=== PATIENT | male | born 1970 | race African-American/Black ===

== ENCOUNTER 2018-07-19 08:49 | Emergency (ER) | payer OTHER, MEDICAID ==
[~2018-07-19] VITALS: Ht 188 cm; Wt 86.2 kg
[2018-07-19 09:00] VITALS: BP_SYST 214
[2018-07-19] MEDS ORDERED: DIPHENHYDRAMINE INJ 50 MG/ML VIAL IVP ONE (09:15)
[2018-07-19] MEDS ORDERED: PROCHLORPERAZINE EDISYLATE 10 MG/2 ML VIAL IVP ONE (09:15)
[2018-07-19 09:51] LABS: EOSINOPHILS # (AUTO) 0.5 K/uL (0.0-0.4); RED CELL DISTRIBUTION WIDTH 14.5 % (9.0-15.0)
[2018-07-19 10:00] LABS: CREATININE 1.89 mg/dL (0.55-1.30); POTASSIUM 3.8 mmol/L (3.5-5.1)
[2018-07-19 10:05] LABS: ALBUMIN 2.3 g/dL (3.4-4.8); TOTAL BILIRUBIN 0.4 mg/dL (0.0-1.0)
[2018-07-19 10:11] LABS: BASOPHILS % (AUTO) 0.1 % (0.0-2.0); HEMATOCRIT 31.4 % (36-54); HEMOGLOBIN 10.5 g/dL (14.0-18.0); RED BLOOD CELL COUNT(AUTO) 3.73 MIL/uL (4.2-6.2); WHITE BLOOD COUNT (AUTO) 17.7 K/uL (4.8-10.8)
[2018-07-19 10:12] LABS: LYMPHOCYTES # (AUTO) 1.8 K/uL (1.0-5.5); LYMPHOCYTES % (AUTO) 9.9 % (20.5-51.5); MEAN CORPUSCULAR HEMOGLOBIN 28 pg (27-31); MEAN CORPUSCULAR HGB CONC 34 % (32-36); MEAN CORPUSCULAR VOLUME 84 fL (79.0-98.0); MONOCYTES % (AUTO) 5.5 % (1.7-9.3); NEUTROPHILS # (AUTO) 14.4 K/uL (1.8-7.7); NEUTROPHILS % (AUTO) 81.5 % (40.0-70.0); PLATELET COUNT (AUTO) 479 K/uL (130-430)
[2018-07-19] MEDS ORDERED: fentaNYL CITRATE/PF 100 MCG/2 ML AMP IVP ONE (10:15)
[2018-07-19] MEDS ORDERED: HALOPERIDOL LACTATE 5 MG/ML VIAL IVP ONE (10:15)
[2018-07-19] MEDS ORDERED: NACL 0.9% 1,000 ML IV ONE (11:30)
[2018-07-19 11:47] VITALS: BP_SYST 122
== END 2018-07-19 11:47 | disposition home or self-care (01) ==
LOC: SED 08:49
DX: E11.43 Type 2 diabetes mellitus with diabetic autonomic (poly)neuropathy (principal); K31.84 Gastroparesis; F12.188 Cannabis abuse with other cannabis-induced disorder
CPT/HCPCS: 36415; 80053; 82962; 83690; 85025; 93005; 96361; 96374; 96375; 99284; J0780; J1200; J3010; J7030; 99283

== ENCOUNTER 2021-10-29 10:30 | Emergency (ER) | payer OTHER, MEDICAID ==
[~2021-10-29] VITALS: Ht 188 cm; Wt 85.7 kg
--- NOTE | 2021-10-29 10:45 | NUR ---
Patient to ER bed 8 for evaluation. Side rails up. Assumed care.
[2021-10-29 10:48] VITALS: BP_SYST 131
--- NOTE | 2021-10-29 10:48 | NUR ---
Pt came in by himself, with complaints of N/V x1 week in mornings that resolves in the afternoon. Denies Diarrhea, now has abd pain 02/15, c/o muscle cramps at night while trying to sleep. Hx of DM, renal failure, HTN.
--- NOTE | 2021-10-29 11:08 | NUR ---
ER at bedside examining patient.
[2021-10-29] MEDS ORDERED: ONDANSETRON 4 MG ODT TAB PO ONE (11:15)
[2021-10-29] MEDS ORDERED: ONDANSETRON HCL 4 MG/2 ML VIAL IVP ONE (11:30)
[2021-10-29 11:40] LABS: BILIRUBIN,URINE NEGATIVE (NEGATIVE); BLOOD, URINE 1+ (NEGATIVE); CLARITY/URINE CLEAR (CLEAR); COLOR,URINE YELLOW (YELLOW); GLUCOSE,URINE NEGATIVE (NEGATIVE); KETONES,URINE NEGATIVE (NEGATIVE); LEUKOCYTE ESTERASE ,URINE NEGATIVE (NEGATIVE); NITRITE, URINE NEGATIVE (NEGATIVE); PROTEIN URINE 2+ (NEGATIVE); UROBILINOGEN,URINE 0.2 (0.2-1.0)
[2021-10-29 11:50] LABS: BASOPHILS % (AUTO) 0.3 % (0.0-2.0); EOSINOPHILS # (AUTO) 0.1 K/uL (0.0-0.4); EOSINOPHILS % (AUTO) 0.6 % (0.0-4.0); HEMATOCRIT 33.7 % (36-54); HEMOGLOBIN 11.4 g/dL (14.0-18.0); LYMPHOCYTES # (AUTO) 0.9 K/uL (1.0-5.5); LYMPHOCYTES % (AUTO) 9.5 % (20.5-51.5); MEAN CORPUSCULAR HEMOGLOBIN 29 pg (27-31); MEAN CORPUSCULAR HGB CONC 34 % (32-36); MEAN CORPUSCULAR VOLUME 87 fL (79.0-98.0); MONOCYTES # (AUTO) 0.6 K/uL (0.0-1.0); MONOCYTES % (AUTO) 6.7 % (1.7-9.3); NEUTROPHILS % (AUTO) 82.9 % (40.0-70.0); PLATELET COUNT (AUTO) 241 K/uL (130-430); RED BLOOD CELL COUNT(AUTO) 3.89 MIL/uL (4.2-6.2); RED CELL DISTRIBUTION WIDTH 14.1 % (9.0-15.0); WHITE BLOOD COUNT (AUTO) 9.6 K/uL (4.8-10.8)
[2021-10-29 11:51] LABS: BACTERIA,URINE RARE /HPF (None Seen); MUCUS,URINE 1+ /LPF (None Seen); RBC,URINE 0-3 /HPF (0-3); WBC,URINE 0-3 /HPF (0-3)
[2021-10-29 12:22] LABS: CALCIUM 7.5 mg/dL (8.4-11.0); PHOSPHORUS 9.6 mg/dL (2.7-4.5); POTASSIUM 3.9 mmol/L (3.5-5.1); TOTAL BILIRUBIN 0.3 mg/dL (0.0-1.0)
[2021-10-29 12:24] LABS: CREATININE 12.97 mg/dL (0.55-1.30)
[2021-10-29] MEDS ORDERED: ONDA-8 TL (14:12)
[2021-10-29] MEDS ORDERED: DOCU-144 PO (14:12)
[2021-10-29] MEDS ORDERED: PSYL1PAC8 PO (14:12)
[2021-10-29 14:20] VITALS: BP_SYST 166
--- NOTE | 2021-10-29 14:20 | NUR ---
Patient given written and verbal discharge instructions and verbalizes understanding. ER Dr. Matute discussed with patient the results and treatment provided. Patient in stable condition. ID arm band removed. IV catheter removed intact and dressing applied, no active bleeding. Rx of Colace, Zofran, metamucil given. Patient educated on pain management and to follow up with PMD. Pain Scale 0. Opportunity for questions provided and answered. Medication side effect fact sheet provided.
== END 2021-10-29 14:20 | disposition home or self-care (01) ==
LOC: SED 10:30
DX: R11.2 Nausea with vomiting, unspecified (principal); K59.00 Constipation, unspecified; E11.22 Type 2 diabetes mellitus with diabetic chronic kidney disease; I12.0 Hypertensive chronic kidney disease with stage 5 chronic kidney disease or end stage renal disease; N18.6 End stage renal disease; Z99.2 Dependence on renal dialysis; Z79.899 Other long term (current) drug therapy
CPT/HCPCS: 36415; 71045; 74021; 80053; 81000; 83605; 83690; 83735; 83880; 84100; 84484; 85025; 87040; 93005; 96374; 99285; J2405

== ENCOUNTER 2022-06-10 18:01 | Inpatient (IN) | payer OTHER, MEDICAID ==
[~2022-06-10] VITALS: Ht 188 cm; Wt 76.7 kg
[~2022-06-10 18:01] MED LIST: DOCU-144 PO; ONDA-8 TL; PSYL1PAC8 PO
[2022-06-10 18:12] VITALS: BP_SYST 200
[2022-06-10] MEDS ORDERED: cefTRIAXone 1 GM IVPB PREMIX 50 ML IV ONE (18:15)
[2022-06-10 18:39] LABS: BILIRUBIN,URINE NEGATIVE (NEGATIVE); BLOOD, URINE 2+ (NEGATIVE); CLARITY/URINE CLEAR (CLEAR); COLOR,URINE YELLOW (YELLOW); GLUCOSE,URINE TRACE (NEGATIVE); KETONES,URINE NEGATIVE (NEGATIVE); LEUKOCYTE ESTERASE ,URINE NEGATIVE (NEGATIVE); NITRITE, URINE NEGATIVE (NEGATIVE); PROTEIN URINE 3+ (NEGATIVE); UROBILINOGEN,URINE 0.2 (0.2-1.0)
[2022-06-10 19:20] LABS: BACTERIA,URINE MODERATE /HPF (None Seen); WBC,URINE 20-50 /HPF (0-3)
[2022-06-10] MEDS ORDERED: MORPHINE 4 MG INJ. 4 MG/ML VIAL IVP ONE (19:30)
[2022-06-10] MEDS ORDERED: MORPHINE 4 MG INJ. 4 MG/ML VIAL ONE (19:38)
[2022-06-10] MEDS ORDERED: ONDANSETRON HCL 4 MG/2 ML VIAL IVP ONE (19:45)
[2022-06-10] MEDS ORDERED: DIPHENHYDRAMINE INJ 50 MG/ML VIAL IVP ONE (19:45)
[2022-06-10] MEDS ORDERED: DIPHENHYDRAMINE INJ 50 MG/ML VIAL ONE (19:46)
[2022-06-10] MEDS ORDERED: ONDANSETRON HCL 4 MG/2 ML VIAL ONE (19:49)
[2022-06-10 19:50] LABS: BASOPHILS # (AUTO) 0.2 K/uL (0.0-0.2); BASOPHILS % (AUTO) 2.8 % (0.0-2.0); EOSINOPHILS # (AUTO) 0.2 K/uL (0.0-0.4); EOSINOPHILS % (AUTO) 2.8 % (0.0-4.0); HEMOGLOBIN 7.8 g/dL (14.0-18.0); LYMPHOCYTES # (AUTO) 0.6 K/uL (1.0-5.5); MEAN CORPUSCULAR HEMOGLOBIN 30 pg (27-31); MEAN CORPUSCULAR HGB CONC 34 % (32-36); MEAN CORPUSCULAR VOLUME 87 fL (79.0-98.0); MONOCYTES # (AUTO) 0.7 K/uL (0.0-1.0); MONOCYTES % (AUTO) 8.2 % (1.7-9.3); NEUTROPHILS # (AUTO) 6.7 K/uL (1.8-7.7); NEUTROPHILS % (AUTO) 79.2 % (40.0-70.0); PLATELET COUNT (AUTO) 180 K/uL (130-430); RED BLOOD CELL COUNT(AUTO) 2.66 MIL/uL (4.2-6.2); WHITE BLOOD COUNT (AUTO) 8.5 K/uL (4.8-10.8)
[2022-06-10 20:16] LABS: ALANINE AMINOTRANSFERASE 27 U/L (12-78); ALBUMIN 2.9 g/dL (3.4-4.8); ANION GAP 13 (5-15); ASPARTATE AMINOTRANSFERASE 10 U/L (10-37); CHLORIDE 108 mmol/L (98-107); GLUCOSE 148 mg/dL (70-99); LIPASE 489 U/L (73-393); TOTAL BILIRUBIN 0.2 mg/dL (0.0-1.0)
[2022-06-10] MEDS ORDERED: INSU100V9 SQ (20:16)
[2022-06-10] MEDS ORDERED: FOLI-43 PO (20:16)
[2022-06-10] MEDS ORDERED: DOCU-144 PO (20:16)
[2022-06-10] MEDS ORDERED: NEPH PO (20:16)
[2022-06-10] MEDS ORDERED: LIP40 PO (20:16)
[2022-06-10] MEDS ORDERED: METO25TA3 PO (20:16)
[2022-06-10] MEDS ORDERED: CAT1PAT TD (20:16)
[2022-06-10] MEDS ORDERED: ERGO800011 PO (20:16)
[2022-06-10] MEDS ORDERED: GABA-533 PO (20:16)
[2022-06-10] MEDS ORDERED: SSNOVOLOG SUBCUT (20:16)
[2022-06-10] MEDS ORDERED: IRBE150T48 PO (20:16)
[2022-06-10] MEDS ORDERED: FURO-149 PO (20:16)
[2022-06-10 20:19] LABS: CALCIUM 6.1 mg/dL (8.4-11.0)
[2022-06-10 20:20] LABS: CREATININE 12.46 mg/dL (0.55-1.30); GFR AFRICAN AMERICAN 5 mL/min (>90); UREA NITROGEN, BLOOD 101 mg/dL (8-21)
[2022-06-10] MEDS ORDERED: INSULIN REGULAR, HUMAN 100 UNITS/ML, 3 ML VIAL (humuLIN R) SUBCUT PRN ×2 (21:15→23:30)
[2022-06-10 22:20] VITALS: BP_SYST 195
[2022-06-10] MEDS ORDERED: cloNIDine HCL 0.1 MG/24 HR PATCH.TDWK TD SCH (23:30)
[2022-06-10] MEDS ORDERED: FUROSEMIDE 40 MG TABLET PO SCH (23:30)
[2022-06-10] MEDS ORDERED: HYDROcodone/ACETAMIN 5-325 MG TAB (NORCO/ VICODIN) PO PRN (23:30)
[2022-06-10] MEDS ORDERED: ERGOCALCIFEROL 8000 UNITS/ML ORAL SOLUTION, 60 ML BOTTLE PO SCH (23:30)
[2022-06-10] MEDS ORDERED: NALOXONE HCL 0.4 MG/ML AMP (NARCAN) IVP PRN ×2 (23:30)
[2022-06-11 01:45] VITALS: BP_SYST 176
[2022-06-11] MEDS ORDERED: cefTRIAXone 1 GM IVPB PREMIX 50 ML IV ONE (02:24)
[2022-06-11] MEDS: cefTRIAXone 1 GM IVPB PREMIX 50 ML IV SCH ×2 (02:36→23:33)
[2022-06-11] MEDS ORDERED: NORMAL SALINE 5 ML DISP.SYRIN IVF SCH (06:00)
[2022-06-11] MEDS: LORazepam 2 MG/ML VIAL IVP PRN (06:17)
[2022-06-11] MEDS: NORMAL SALINE 5 ML DISP.SYRIN IVF SCH ×3 (06:23→21:51)
[2022-06-11 08:00] VITALS: BP_SYST 156
[2022-06-11 08:09] LABS: BASOPHILS # (AUTO) 0.1 K/uL (0.0-0.2); BASOPHILS % (AUTO) 0.5 % (0.0-2.0); EOSINOPHILS # (AUTO) 0.3 K/uL (0.0-0.4); EOSINOPHILS % (AUTO) 2.2 % (0.0-4.0); HEMATOCRIT 22.7 % (36-54); HEMOGLOBIN 7.7 g/dL (14.0-18.0); LYMPHOCYTES # (AUTO) 0.9 K/uL (1.0-5.5); LYMPHOCYTES % (AUTO) 6.9 % (20.5-51.5); MEAN CORPUSCULAR HEMOGLOBIN 29 pg (27-31); MEAN CORPUSCULAR HGB CONC 34 % (32-36); MEAN CORPUSCULAR VOLUME 86 fL (79.0-98.0); MONOCYTES # (AUTO) 0.8 K/uL (0.0-1.0); MONOCYTES % (AUTO) 6.2 % (1.7-9.3); NEUTROPHILS # (AUTO) 11.1 K/uL (1.8-7.7); NEUTROPHILS % (AUTO) 84.2 % (40.0-70.0); PLATELET COUNT (AUTO) 171 K/uL (130-430); RED BLOOD CELL COUNT(AUTO) 2.63 MIL/uL (4.2-6.2); RED CELL DISTRIBUTION WIDTH 14.4 % (9.0-15.0); WHITE BLOOD COUNT (AUTO) 13.2 K/uL (4.8-10.8)
[2022-06-11 08:27] LABS: PHOSPHORUS 7.9 mg/dL (2.7-4.5)
[2022-06-11] MEDS: NEPHROVITE, (FOLIC ACID/VITAMIN B COMP W-C 1 TAB) PO SCH (08:27)
[2022-06-11] MEDS: DOCUSATE SODIUM 100 MG CAPSULE PO SCH ×2 (08:27→20:24)
[2022-06-11] MEDS: FOLIC ACID 1 MG TABLET PO SCH (08:27)
[2022-06-11 08:28] LABS: CALCIUM 5.4 mg/dL (8.4-11.0); CREATININE 12.54 mg/dL (0.55-1.30)
[2022-06-11] MEDS: GABAPENTIN 300 MG CAPSULE PO SCH ×3 (08:37→20:24)
[2022-06-11] MEDS ORDERED: METOPROLOL SUCCINATE 25 MG TAB.SR.24H (TOPROL XL) PO SCH (09:00)
[2022-06-11] MEDS ORDERED: IRBESARTAN 150 MG TABLET (AVAPRO) PO SCH (09:00)
[2022-06-11] MEDS ORDERED: LOSARTAN POTASSIUM 50 MG TABLET (COZAAR) PO SCH ×2 (09:00→13:20)
[2022-06-11] MEDS ORDERED: GABAPENTIN 400 MG CAPSULE PO SCH (09:00)
[2022-06-11] MEDS: HYDROcodone/ACETAMIN 10-325 MG TAB PO PRN (10:04)
[2022-06-11 12:00] VITALS: BP_SYST 187
[2022-06-11] MEDS ORDERED: amLODIPine BESYLATE 10 MG TABLET PO ONE (12:00)
[2022-06-11] MEDS ORDERED: ERGO1250 PO (12:54)
[2022-06-11] MEDS ORDERED: METO25TA6 PO (12:54)
[2022-06-11] MEDS ORDERED: NEPHROVITE, (FOLIC ACID/VITAMIN B COMP W-C 1 TAB) PO SCH (13:15)
[2022-06-11] MEDS ORDERED: hydrALAZINE HCL 20 MG/ML VIAL IVP PRN (13:15)
[2022-06-11] MEDS ORDERED: LISINOPRIL 10 MG TABLET (PRINIVIL) PO SCH (13:15)
[2022-06-11] MEDS ORDERED: SEVELAMER CARBONATE 800 MG TABLET PO ONE (13:30)
[2022-06-11] MEDS: hydrALAZINE HCL 25 MG TABLET PO SCH ×2 (14:00→21:54)
[2022-06-11] MEDS: MORPHINE 2 MG/ML INJ. SYRINGE IVP PRN ×2 (14:59→22:01)
[2022-06-11] MEDS ORDERED: HEPARIN SODIUM,PORCINE 5,000 UNITS/ML VIAL SUBCUT ONE (15:45)
[2022-06-11] MEDS ORDERED: VANCOMYCIN HCL 1,000 MG in NS 250 ML IV ONE (19:00)
[2022-06-11 20:10] VITALS: BP_SYST 190
[2022-06-11] MEDS: ATORVASTATIN 20 MG TABLET PO SCH (20:24)
[2022-06-11] MEDS: EPOETIN ALFA 10,000 UNITS/ML VIAL SUBCUT SCH (20:25)
[2022-06-11] MEDS: SEVELAMER CARBONATE 800 MG TABLET PO SCH (20:25)
[2022-06-11] MEDS: METOPROLOL TARTRATE 25 MG TABLET PO SCH (20:26)
[2022-06-11] MEDS: ONDANSETRON HCL 4 MG/2 ML VIAL IVP PRN (20:37)
[2022-06-11] MEDS: INSULIN GLARGINE 100 UNITS/ML, 10 ML VIAL SQ SCH (20:43)
[2022-06-11 23:00] VITALS: BP_SYST 160
[2022-06-12] VITALS: BP_SYST 160
[2022-06-12] MEDS: ONDANSETRON HCL 4 MG/2 ML VIAL IVP PRN ×5 (01:29→21:48)
[2022-06-12] MEDS: NORMAL SALINE 5 ML DISP.SYRIN IVF SCH ×3 (06:39→21:50)
[2022-06-12] MEDS: hydrALAZINE HCL 25 MG TABLET PO SCH ×3 (06:43→17:22)
[2022-06-12 08:00] VITALS: BP_SYST 174
[2022-06-12 08:06] LABS: BASOPHILS # (AUTO) 0.1 K/uL (0.0-0.2); BASOPHILS % (AUTO) 0.8 % (0.0-2.0); EOSINOPHILS # (AUTO) 0.3 K/uL (0.0-0.4); EOSINOPHILS % (AUTO) 3.3 % (0.0-4.0); HEMATOCRIT 26.2 % (36-54); HEMOGLOBIN 9.1 g/dL (14.0-18.0); LYMPHOCYTES # (AUTO) 0.5 K/uL (1.0-5.5); LYMPHOCYTES % (AUTO) 5.4 % (20.5-51.5); MEAN CORPUSCULAR HEMOGLOBIN 30 pg (27-31); MEAN CORPUSCULAR HGB CONC 35 % (32-36); MEAN CORPUSCULAR VOLUME 87 fL (79.0-98.0); MONOCYTES # (AUTO) 0.6 K/uL (0.0-1.0); MONOCYTES % (AUTO) 5.6 % (1.7-9.3); NEUTROPHILS # (AUTO) 8.7 K/uL (1.8-7.7); NEUTROPHILS % (AUTO) 84.9 % (40.0-70.0); PLATELET COUNT (AUTO) 180 K/uL (130-430); RED BLOOD CELL COUNT(AUTO) 3.02 MIL/uL (4.2-6.2); RED CELL DISTRIBUTION WIDTH 13.8 % (9.0-15.0); WHITE BLOOD COUNT (AUTO) 10.2 K/uL (4.8-10.8)
[2022-06-12 08:07] LABS: C-REACTIVE PROTEIN QUANT 0.5 mg/dL (0-0.5); PHOSPHORUS 6.7 mg/dL (2.7-4.5); TOTAL BILIRUBIN 0.3 mg/dL (0.0-1.0); VANCOMYCIN,RANDOM 14.6 ug/mL
[2022-06-12 08:32] LABS: CALCIUM 6.5 mg/dL (8.4-11.0)
[2022-06-12 08:34] LABS: CREATININE 8.66 mg/dL (0.55-1.30)
[2022-06-12] MEDS: SEVELAMER CARBONATE 800 MG TABLET PO SCH ×3 (08:45→17:25)
[2022-06-12] MEDS: FOLIC ACID 1 MG TABLET PO SCH (08:45)
[2022-06-12] MEDS: amLODIPine BESYLATE 10 MG TABLET PO SCH (08:46)
[2022-06-12] MEDS: NEPHROVITE, (FOLIC ACID/VITAMIN B COMP W-C 1 TAB) PO SCH (08:49)
[2022-06-12] MEDS: LOSARTAN POTASSIUM 50 MG TABLET (COZAAR) PO SCH (08:50)
[2022-06-12] MEDS: FUROSEMIDE 40 MG TABLET PO SCH (08:50)
[2022-06-12] MEDS: DOCUSATE SODIUM 100 MG CAPSULE PO SCH ×2 (08:50→21:00)
[2022-06-12] MEDS: METOPROLOL TARTRATE 25 MG TABLET PO SCH ×2 (08:51→21:47)
[2022-06-12] MEDS ORDERED: ERGOCALCIFEROL PO SCH (09:00)
[2022-06-12] MEDS ORDERED: [UNRECOGNIZED DRUG - OTHER] PO SCH (09:00)
[2022-06-12] MEDS: GABAPENTIN 300 MG CAPSULE PO SCH ×5 (09:00→21:47)
[2022-06-12] MEDS ORDERED: CALCIUM GLUCONATE 1 GM/10 ML VIAL IVP ONE (09:15)
[2022-06-12] MEDS ORDERED: CALCIUM GLUCONATE 1 GM in NS 50 ML IV ONE (10:00)
[2022-06-12] MEDS ORDERED: CALCIUM GLUCONATE 1 GM/10 ML VIAL ONE (10:33)
[2022-06-12 11:52] LABS: ERYTHROCYTE SEDIMENTATION RATE 47 MM/HR (0-15)
[2022-06-12 12:00] VITALS: BP_SYST 159
[2022-06-12] MEDS ORDERED: VANCOMYCIN HCL 1,000 MG in NS 250 ML IV ONE (12:00)
[2022-06-12 16:00] VITALS: BP_SYST 146
[2022-06-12 19:20] VITALS: BP_SYST 159
[2022-06-12] MEDS: INSULIN GLARGINE 100 UNITS/ML, 10 ML VIAL SQ SCH (21:00)
[2022-06-12] MEDS: ATORVASTATIN 20 MG TABLET PO SCH (21:47)
[2022-06-13 00:42] VITALS: BP_SYST 162
[2022-06-13] MEDS: cefTRIAXone 1 GM IVPB PREMIX 50 ML IV SCH ×2 (00:44→23:27)
[2022-06-13] MEDS: hydrALAZINE HCL 25 MG TABLET PO SCH ×5 (00:45→23:49)
[2022-06-13] MEDS: NORMAL SALINE 5 ML DISP.SYRIN IVF SCH ×3 (06:05→21:58)
[2022-06-13 08:16] LABS: BASOPHILS # (AUTO) 0.1 K/uL (0.0-0.2); BASOPHILS % (AUTO) 1.1 % (0.0-2.0); EOSINOPHILS # (AUTO) 0.3 K/uL (0.0-0.4); EOSINOPHILS % (AUTO) 2.8 % (0.0-4.0); HEMATOCRIT 29.8 % (36-54); HEMOGLOBIN 10.1 g/dL (14.0-18.0); LYMPHOCYTES # (AUTO) 1.1 K/uL (1.0-5.5); LYMPHOCYTES % (AUTO) 11.1 % (20.5-51.5); MEAN CORPUSCULAR HEMOGLOBIN 30 pg (27-31); MEAN CORPUSCULAR HGB CONC 34 % (32-36); MEAN CORPUSCULAR VOLUME 87 fL (79.0-98.0); MONOCYTES # (AUTO) 0.9 K/uL (0.0-1.0); MONOCYTES % (AUTO) 8.7 % (1.7-9.3); NEUTROPHILS # (AUTO) 7.9 K/uL (1.8-7.7); NEUTROPHILS % (AUTO) 76.3 % (40.0-70.0); PLATELET COUNT (AUTO) 225 K/uL (130-430); RED BLOOD CELL COUNT(AUTO) 3.43 MIL/uL (4.2-6.2); RED CELL DISTRIBUTION WIDTH 13.9 % (9.0-15.0); WHITE BLOOD COUNT (AUTO) 10.4 K/uL (4.8-10.8)
[2022-06-13 08:28] LABS: ANION GAP 13 (5-15); CHLORIDE 102 mmol/L (98-107); GLUCOSE 86 mg/dL (70-99); UREA NITROGEN, BLOOD 67 mg/dL (8-21)
[2022-06-13 08:58] LABS: PHOSPHORUS 7.9 mg/dL (2.7-4.5)
[2022-06-13 09:07] LABS: C-REACTIVE PROTEIN QUANT < 0.2 mg/dL (0-0.5); GFR AFRICAN AMERICAN 7 mL/min (>90)
[2022-06-13 09:08] LABS: CALCIUM 6.7 mg/dL (8.4-11.0); CREATININE 10.33 mg/dL (0.55-1.30)
[2022-06-13 09:27] LABS: VANCOMYCIN,RANDOM 22.8 ug/mL
[2022-06-13] MEDS: LOSARTAN POTASSIUM 50 MG TABLET (COZAAR) PO SCH (10:52)
[2022-06-13] MEDS: SEVELAMER CARBONATE 800 MG TABLET PO SCH ×3 (10:52→17:20)
[2022-06-13] MEDS: DOCUSATE SODIUM 100 MG CAPSULE PO SCH ×2 (10:52→21:00)
[2022-06-13] MEDS: FUROSEMIDE 40 MG TABLET PO SCH (10:53)
[2022-06-13] MEDS: FOLIC ACID 1 MG TABLET PO SCH (10:53)
[2022-06-13] MEDS: METOPROLOL TARTRATE 25 MG TABLET PO SCH ×2 (10:54→21:55)
[2022-06-13] MEDS: GABAPENTIN 300 MG CAPSULE PO SCH ×3 (10:54→21:55)
[2022-06-13] MEDS: amLODIPine BESYLATE 10 MG TABLET PO SCH (10:54)
[2022-06-13] MEDS: NEPHROVITE, (FOLIC ACID/VITAMIN B COMP W-C 1 TAB) PO SCH (10:54)
[2022-06-13] MEDS: BALSAM PERU/CASTOR OIL 56.7 GM OINT...G. TP SCH (10:55)
[2022-06-13] MEDS: PANTOPRAZOLE SODIUM 40 MG TAB PO SCH (10:56)
[2022-06-13 12:00] VITALS: BP_SYST 159
[2022-06-13 13:09] LABS: ERYTHROCYTE SEDIMENTATION RATE 41 MM/HR (0-15)
[2022-06-13] MEDS ORDERED: CALCIUM GLUCONATE 1 GM in NS 100 ML IV ONE (13:30)
[2022-06-13] MEDS ORDERED: HEPARIN SODIUM,PORCINE 5,000 UNITS/ML VIAL ONE (15:16)
[2022-06-13] MEDS ORDERED: SEVELAMER CARBONATE 800 MG TABLET ONE (15:17)
[2022-06-13] MEDS ORDERED: GABAPENTIN 300 MG CAPSULE ONE (15:17)
[2022-06-13] MEDS: LORazepam 2 MG/ML VIAL IVP PRN (15:21)
[2022-06-13 16:00] VITALS: BP_SYST 139
[2022-06-13 20:30] VITALS: BP_SYST 133
[2022-06-13] MEDS: INSULIN GLARGINE 100 UNITS/ML, 10 ML VIAL SQ SCH (21:00)
[2022-06-13] MEDS: ATORVASTATIN 20 MG TABLET PO SCH (21:55)
[2022-06-14] MEDS: MORPHINE 2 MG/ML INJ. SYRINGE IVP PRN ×2 (00:34→14:21)
[2022-06-14 02:00] VITALS: BP_SYST 198
[2022-06-14 04:26] VITALS: BP_SYST 147
[2022-06-14] MEDS: NORMAL SALINE 5 ML DISP.SYRIN IVF SCH ×3 (06:34→22:01)
[2022-06-14] MEDS: hydrALAZINE HCL 25 MG TABLET PO SCH ×3 (06:37→17:49)
[2022-06-14 07:38] LABS: BASOPHILS # (AUTO) 0.1 K/uL (0.0-0.2); BASOPHILS % (AUTO) 0.9 % (0.0-2.0); EOSINOPHILS # (AUTO) 0.4 K/uL (0.0-0.4); HEMATOCRIT 29.5 % (36-54); HEMOGLOBIN 10.2 g/dL (14.0-18.0); LYMPHOCYTES # (AUTO) 1.4 K/uL (1.0-5.5); LYMPHOCYTES % (AUTO) 14.2 % (20.5-51.5); MEAN CORPUSCULAR HEMOGLOBIN 30 pg (27-31); MEAN CORPUSCULAR HGB CONC 35 % (32-36); MEAN CORPUSCULAR VOLUME 87 fL (79.0-98.0); MONOCYTES % (AUTO) 10.1 % (1.7-9.3); NEUTROPHILS # (AUTO) 6.9 K/uL (1.8-7.7); NEUTROPHILS % (AUTO) 70.8 % (40.0-70.0); PLATELET COUNT (AUTO) 229 K/uL (130-430); WHITE BLOOD COUNT (AUTO) 9.8 K/uL (4.8-10.8)
[2022-06-14 08:12] LABS: ANION GAP 9 (5-15); CALCIUM 7.9 mg/dL (8.4-11.0); CHLORIDE 101 mmol/L (98-107); GLUCOSE 89 mg/dL (70-99); PHOSPHORUS 5.4 mg/dL (2.7-4.5); UREA NITROGEN, BLOOD 38 mg/dL (8-21)
[2022-06-14 08:16] LABS: CREATININE 7.86 mg/dL (0.55-1.30); GFR AFRICAN AMERICAN 9 mL/min (>90)
[2022-06-14 08:46] LABS: C-REACTIVE PROTEIN QUANT < 0.2 mg/dL (0-0.5)
[2022-06-14 09:24] LABS: VANCOMYCIN,RANDOM 16.8 ug/mL
[2022-06-14] MEDS: SEVELAMER CARBONATE 800 MG TABLET PO SCH ×3 (10:13→17:48)
[2022-06-14] MEDS: DOCUSATE SODIUM 100 MG CAPSULE PO SCH ×2 (10:13→21:00)
[2022-06-14] MEDS: LOSARTAN POTASSIUM 50 MG TABLET (COZAAR) PO SCH (10:13)
[2022-06-14] MEDS: METOPROLOL TARTRATE 25 MG TABLET PO SCH ×2 (10:14→21:56)
[2022-06-14] MEDS: FUROSEMIDE 40 MG TABLET PO SCH (10:15)
[2022-06-14] MEDS: PANTOPRAZOLE SODIUM 40 MG TAB PO SCH (10:15)
[2022-06-14] MEDS: GABAPENTIN 300 MG CAPSULE PO SCH ×3 (10:15→21:56)
[2022-06-14] MEDS: NEPHROVITE, (FOLIC ACID/VITAMIN B COMP W-C 1 TAB) PO SCH (10:16)
[2022-06-14] MEDS: amLODIPine BESYLATE 10 MG TABLET PO SCH (10:16)
[2022-06-14] MEDS: FOLIC ACID 1 MG TABLET PO SCH (10:21)
[2022-06-14] MEDS: BALSAM PERU/CASTOR OIL 56.7 GM OINT...G. TP SCH (10:22)
[2022-06-14 12:00] VITALS: BP_SYST 151
[2022-06-14] MEDS ORDERED: VANCOMYCIN HCL 1,000 MG in NS 250 ML IV ONE (12:00)
[2022-06-14 14:05] LABS: ERYTHROCYTE SEDIMENTATION RATE 34 MM/HR (0-15)
[2022-06-14 16:00] VITALS: BP_SYST 145
[2022-06-14] MEDS ORDERED: cloNIDine HCL 0.1 MG TABLET PO ONE (16:00)
[2022-06-14] MEDS: EPOETIN ALFA 10,000 UNITS/ML VIAL SUBCUT SCH (17:51)
[2022-06-14 20:15] VITALS: BP_SYST 165
[2022-06-14] MEDS: INSULIN GLARGINE 100 UNITS/ML, 10 ML VIAL SQ SCH (21:00)
[2022-06-14] MEDS: cloNIDine HCL 0.1 MG TABLET PO SCH (21:55)
[2022-06-14] MEDS: ATORVASTATIN 20 MG TABLET PO SCH (21:55)
[2022-06-15 01:25] VITALS: BP_SYST 115
[2022-06-15] MEDS: cefTRIAXone 1 GM IVPB PREMIX 50 ML IV SCH ×2 (01:27→23:08)
[2022-06-15] MEDS: hydrALAZINE HCL 25 MG TABLET PO SCH ×5 (06:00→23:18)
[2022-06-15] MEDS: NORMAL SALINE 5 ML DISP.SYRIN IVF SCH ×3 (06:50→23:08)
[2022-06-15 08:21] LABS: BASOPHILS # (AUTO) 0.1 K/uL (0.0-0.2); BASOPHILS % (AUTO) 0.9 % (0.0-2.0); EOSINOPHILS # (AUTO) 0.6 K/uL (0.0-0.4); HEMATOCRIT 27.7 % (36-54); HEMOGLOBIN 9.6 g/dL (14.0-18.0); LYMPHOCYTES # (AUTO) 1.4 K/uL (1.0-5.5); LYMPHOCYTES % (AUTO) 17.1 % (20.5-51.5); MEAN CORPUSCULAR HEMOGLOBIN 31 pg (27-31); MEAN CORPUSCULAR HGB CONC 35 % (32-36); MEAN CORPUSCULAR VOLUME 88 fL (79.0-98.0); MONOCYTES # (AUTO) 1.1 K/uL (0.0-1.0); MONOCYTES % (AUTO) 13.4 % (1.7-9.3); NEUTROPHILS # (AUTO) 5.1 K/uL (1.8-7.7); NEUTROPHILS % (AUTO) 61.6 % (40.0-70.0); PLATELET COUNT (AUTO) 227 K/uL (130-430); RED BLOOD CELL COUNT(AUTO) 3.15 MIL/uL (4.2-6.2); RED CELL DISTRIBUTION WIDTH 13.9 % (9.0-15.0); WHITE BLOOD COUNT (AUTO) 8.3 K/uL (4.8-10.8)
[2022-06-15 08:53] LABS: ALANINE AMINOTRANSFERASE 16 U/L (12-78); ALBUMIN 2.8 g/dL (3.4-4.8); ANION GAP 7 (5-15); ASPARTATE AMINOTRANSFERASE 13 U/L (10-37); CALCIUM 7.4 mg/dL (8.4-11.0); CHLORIDE 101 mmol/L (98-107); GLUCOSE 97 mg/dL (70-99); PHOSPHORUS 5.5 mg/dL (2.7-4.5); TOTAL BILIRUBIN 0.1 mg/dL (0.0-1.0); UREA NITROGEN, BLOOD 48 mg/dL (8-21)
[2022-06-15 09:23] LABS: ERYTHROCYTE SEDIMENTATION RATE 23 MM/HR (0-15)
[2022-06-15 09:27] VITALS: BP_SYST 145
[2022-06-15] MEDS: GABAPENTIN 300 MG CAPSULE PO SCH ×3 (09:31→20:58)
[2022-06-15] MEDS: LOSARTAN POTASSIUM 50 MG TABLET (COZAAR) PO SCH (09:31)
[2022-06-15] MEDS: SEVELAMER CARBONATE 800 MG TABLET PO SCH ×3 (09:32→17:26)
[2022-06-15] MEDS: METOPROLOL TARTRATE 25 MG TABLET PO SCH ×2 (09:32→21:05)
[2022-06-15] MEDS: NEPHROVITE, (FOLIC ACID/VITAMIN B COMP W-C 1 TAB) PO SCH (09:32)
[2022-06-15] MEDS: amLODIPine BESYLATE 10 MG TABLET PO SCH (09:33)
[2022-06-15] MEDS: PANTOPRAZOLE SODIUM 40 MG TAB PO SCH (09:33)
[2022-06-15] MEDS: DOCUSATE SODIUM 100 MG CAPSULE PO SCH ×2 (09:33→20:58)
[2022-06-15] MEDS: FOLIC ACID 1 MG TABLET PO SCH (09:34)
[2022-06-15] MEDS: cloNIDine HCL 0.1 MG TABLET PO SCH ×2 (09:34→21:04)
[2022-06-15] MEDS: FUROSEMIDE 40 MG TABLET PO SCH (09:34)
[2022-06-15] MEDS: BALSAM PERU/CASTOR OIL 56.7 GM OINT...G. TP SCH (09:34)
[2022-06-15 10:20] LABS: GFR AFRICAN AMERICAN 7 mL/min (>90)
[2022-06-15 10:21] LABS: CREATININE 10.08 mg/dL (0.55-1.30)
[2022-06-15 10:23] LABS: C-REACTIVE PROTEIN QUANT < 0.2 mg/dL (0-0.5)
[2022-06-15] MEDS: LORazepam 2 MG/ML VIAL IVP PRN (10:47)
[2022-06-15 12:43] VITALS: BP_SYST 163
[2022-06-15 17:08] VITALS: BP_SYST 122
[2022-06-15 20:00] VITALS: BP_SYST 111
[2022-06-15] MEDS: ACETAMINOPHEN 325 MG TABLET PO PRN (20:58)
[2022-06-15] MEDS: ATORVASTATIN 20 MG TABLET PO SCH (20:58)
[2022-06-15] MEDS: INSULIN GLARGINE 100 UNITS/ML, 10 ML VIAL SQ SCH (21:00)
[2022-06-15] MEDS: MORPHINE 2 MG/ML INJ. SYRINGE IVP PRN (23:07)
[2022-06-16] MEDS: hydrALAZINE HCL 25 MG TABLET PO SCH ×3 (06:00→17:32)
[2022-06-16] MEDS: NORMAL SALINE 5 ML DISP.SYRIN IVF SCH ×3 (06:05→21:53)
[2022-06-16 07:19] LABS: BASOPHILS # (AUTO) 0.1 K/uL (0.0-0.2); BASOPHILS % (AUTO) 1.1 % (0.0-2.0); EOSINOPHILS # (AUTO) 0.5 K/uL (0.0-0.4); EOSINOPHILS % (AUTO) 5.4 % (0.0-4.0); HEMATOCRIT 27.9 % (36-54); HEMOGLOBIN 9.5 g/dL (14.0-18.0); LYMPHOCYTES # (AUTO) 1.5 K/uL (1.0-5.5); LYMPHOCYTES % (AUTO) 16.1 % (20.5-51.5); MEAN CORPUSCULAR HEMOGLOBIN 30 pg (27-31); MEAN CORPUSCULAR HGB CONC 34 % (32-36); MEAN CORPUSCULAR VOLUME 88 fL (79.0-98.0); MONOCYTES # (AUTO) 1.2 K/uL (0.0-1.0); MONOCYTES % (AUTO) 12.8 % (1.7-9.3); NEUTROPHILS % (AUTO) 64.6 % (40.0-70.0); PLATELET COUNT (AUTO) 260 K/uL (130-430); RED BLOOD CELL COUNT(AUTO) 3.17 MIL/uL (4.2-6.2); RED CELL DISTRIBUTION WIDTH 14.3 % (9.0-15.0); WHITE BLOOD COUNT (AUTO) 9.2 K/uL (4.8-10.8)
[2022-06-16 07:39] LABS: ANION GAP 8 (5-15); CALCIUM 7.8 mg/dL (8.4-11.0); CHLORIDE 102 mmol/L (98-107); GLUCOSE 105 mg/dL (70-99); PHOSPHORUS 4.7 mg/dL (2.7-4.5); UREA NITROGEN, BLOOD 35 mg/dL (8-21)
[2022-06-16 07:49] LABS: GFR AFRICAN AMERICAN 9 mL/min (>90)
[2022-06-16 07:50] LABS: C-REACTIVE PROTEIN QUANT < 0.2 mg/dL (0-0.5)
[2022-06-16] MEDS: NEPHROVITE, (FOLIC ACID/VITAMIN B COMP W-C 1 TAB) PO SCH (08:45)
[2022-06-16] MEDS: SEVELAMER CARBONATE 800 MG TABLET PO SCH ×3 (08:45→17:22)
[2022-06-16] MEDS: FOLIC ACID 1 MG TABLET PO SCH (08:45)
[2022-06-16] MEDS: METOPROLOL TARTRATE 25 MG TABLET PO SCH ×2 (08:46→21:00)
[2022-06-16] MEDS: GABAPENTIN 300 MG CAPSULE PO SCH ×3 (08:46→21:06)
[2022-06-16] MEDS: FUROSEMIDE 40 MG TABLET PO SCH (08:47)
[2022-06-16] MEDS: LOSARTAN POTASSIUM 50 MG TABLET (COZAAR) PO SCH (08:48)
[2022-06-16] MEDS: PANTOPRAZOLE SODIUM 40 MG TAB PO SCH (08:48)
[2022-06-16] MEDS: amLODIPine BESYLATE 10 MG TABLET PO SCH (08:48)
[2022-06-16] MEDS: DOCUSATE SODIUM 100 MG CAPSULE PO SCH ×2 (08:49→21:06)
[2022-06-16] MEDS: cloNIDine HCL 0.1 MG TABLET PO SCH ×2 (08:49→21:06)
[2022-06-16 08:58] LABS: VANCOMYCIN,RANDOM 16.6 ug/mL
[2022-06-16] MEDS: LORazepam 2 MG/ML VIAL IVP PRN (10:50)
[2022-06-16 11:35] VITALS: BP_SYST 142
[2022-06-16] MEDS ORDERED: VANCOMYCIN HCL 1,000 MG in NS 250 ML IV ONE (12:00)
[2022-06-16] MEDS: BALSAM PERU/CASTOR OIL 56.7 GM OINT...G. TP SCH (13:19)
[2022-06-16 13:53] LABS: ERYTHROCYTE SEDIMENTATION RATE 23 MM/HR (0-15)
[2022-06-16 15:45] VITALS: BP_SYST 118
[2022-06-16] MEDS: HYDROcodone/ACETAMIN 10-325 MG TAB PO PRN (17:21)
[2022-06-16] MEDS: EPOETIN ALFA 10,000 UNITS/ML VIAL SUBCUT SCH (17:32)
[2022-06-16 20:00] VITALS: BP_SYST 119
[2022-06-16] MEDS: INSULIN GLARGINE 100 UNITS/ML, 10 ML VIAL SQ SCH (21:00)
[2022-06-16] MEDS: ACETAMINOPHEN 325 MG TABLET PO PRN (21:06)
[2022-06-16] MEDS: ATORVASTATIN 20 MG TABLET PO SCH (21:52)
[2022-06-16] MEDS: cefTRIAXone 1 GM IVPB PREMIX 50 ML IV SCH (21:59)
[2022-06-17 06:47] LABS: BASOPHILS # (AUTO) 0.1 K/uL (0.0-0.2); BASOPHILS % (AUTO) 1.3 % (0.0-2.0); EOSINOPHILS # (AUTO) 0.4 K/uL (0.0-0.4); EOSINOPHILS % (AUTO) 4.4 % (0.0-4.0); HEMATOCRIT 27.6 % (36-54); HEMOGLOBIN 9.4 g/dL (14.0-18.0); LYMPHOCYTES # (AUTO) 1.6 K/uL (1.0-5.5); LYMPHOCYTES % (AUTO) 18.5 % (20.5-51.5); MEAN CORPUSCULAR HEMOGLOBIN 30 pg (27-31); MEAN CORPUSCULAR HGB CONC 34 % (32-36); MEAN CORPUSCULAR VOLUME 89 fL (79.0-98.0); MONOCYTES % (AUTO) 11.5 % (1.7-9.3); NEUTROPHILS # (AUTO) 5.6 K/uL (1.8-7.7); NEUTROPHILS % (AUTO) 64.3 % (40.0-70.0); PLATELET COUNT (AUTO) 240 K/uL (130-430); RED BLOOD CELL COUNT(AUTO) 3.12 MIL/uL (4.2-6.2); RED CELL DISTRIBUTION WIDTH 14.2 % (9.0-15.0); WHITE BLOOD COUNT (AUTO) 8.8 K/uL (4.8-10.8)
[2022-06-17 06:59] VITALS: BP_SYST 123
[2022-06-17] MEDS: hydrALAZINE HCL 25 MG TABLET PO SCH ×3 (07:03→11:59)
[2022-06-17] MEDS: NORMAL SALINE 5 ML DISP.SYRIN IVF SCH ×2 (07:05→14:00)
[2022-06-17 07:08] LABS: ALANINE AMINOTRANSFERASE 16 U/L (12-78); ANION GAP 7 (5-15); ASPARTATE AMINOTRANSFERASE 13 U/L (10-37); CALCIUM 7.9 mg/dL (8.4-11.0); CHLORIDE 103 mmol/L (98-107); GLUCOSE 87 mg/dL (70-99); PHOSPHORUS 5.3 mg/dL (2.7-4.5); TOTAL BILIRUBIN 0.2 mg/dL (0.0-1.0); UREA NITROGEN, BLOOD 41 mg/dL (8-21)
[2022-06-17 07:27] LABS: GFR AFRICAN AMERICAN 7 mL/min (>90)
[2022-06-17 07:36] LABS: CREATININE 10.43 mg/dL (0.55-1.30)
[2022-06-17 07:37] LABS: C-REACTIVE PROTEIN QUANT < 0.2 mg/dL (0-0.5)
[2022-06-17 08:00] VITALS: BP_SYST 143
[2022-06-17] MEDS: SEVELAMER CARBONATE 800 MG TABLET PO SCH ×2 (08:00→11:58)
[2022-06-17 08:22] LABS: ERYTHROCYTE SEDIMENTATION RATE 23 MM/HR (0-15)
[2022-06-17] MEDS: LORazepam 2 MG/ML VIAL IVP PRN (08:42)
[2022-06-17] MEDS: METOPROLOL TARTRATE 25 MG TABLET PO SCH (09:00)
[2022-06-17] MEDS: DOCUSATE SODIUM 100 MG CAPSULE PO SCH (09:00)
[2022-06-17] MEDS: LOSARTAN POTASSIUM 50 MG TABLET (COZAAR) PO SCH (09:00)
[2022-06-17] MEDS: cloNIDine HCL 0.1 MG TABLET PO SCH (09:00)
[2022-06-17] MEDS: amLODIPine BESYLATE 10 MG TABLET PO SCH (09:00)
[2022-06-17] MEDS: GABAPENTIN 300 MG CAPSULE PO SCH ×2 (09:00→15:00)
[2022-06-17] MEDS: FUROSEMIDE 40 MG TABLET PO SCH (09:00)
[2022-06-17] MEDS ORDERED: PRO40 PO (11:12)
[2022-06-17] MEDS ORDERED: SEVE800T8 PO (11:12)
[2022-06-17] MEDS ORDERED: HYDR-4038 PO (11:12)
[2022-06-17] MEDS ORDERED: LOSA50TA3 PO (11:12)
[2022-06-17] MEDS ORDERED: CLONIDINE HCL PO (11:12)
[2022-06-17] MEDS ORDERED: LEVO250T73 PO (11:12)
[2022-06-17] MEDS ORDERED: FURO-149 PO (11:12)
[2022-06-17] MEDS ORDERED: NOR10 PO (11:12)
[2022-06-17 11:19] VITALS: BP_SYST 130
[2022-06-17] MEDS: PANTOPRAZOLE SODIUM 40 MG TAB PO SCH (11:59)
[2022-06-17] MEDS: NEPHROVITE, (FOLIC ACID/VITAMIN B COMP W-C 1 TAB) PO SCH (11:59)
[2022-06-17] MEDS: FOLIC ACID 1 MG TABLET PO SCH (11:59)
[2022-06-17] MEDS: BALSAM PERU/CASTOR OIL 56.7 GM OINT...G. TP SCH (12:01)
[2022-06-17 15:47] VITALS: BP_SYST 111
[2022-06-17] MEDS ORDERED: cefTRIAXone 1 GM IVPB PREMIX 50 ML IV SCH (21:00)
== END 2022-06-17 17:45 | disposition home or self-care (01) | DRG 564 ==
LOC: SED 18:01 → STU 21:03 → SMU 06-12 11:01
PROVIDERS: ADMIT Preventive Medicine Preventive Medicine/Occupational Environmental Medicine; ATTEND Preventive Medicine Preventive Medicine/Occupational Environmental Medicine
DX: T87.43 Infection of amputation stump, right lower extremity (principal); A41.89 Other specified sepsis; N18.6 End stage renal disease; I12.0 Hypertensive chronic kidney disease with stage 5 chronic kidney disease or end stage renal disease; M86.8X7 Other osteomyelitis, ankle and foot; L97.418 Non-pressure chronic ulcer of right heel and midfoot with other specified severity; L97.428 Non-pressure chronic ulcer of left heel and midfoot with other specified severity; E11.22 Type 2 diabetes mellitus with diabetic chronic kidney disease; E78.5 Hyperlipidemia, unspecified; D63.1 Anemia in chronic kidney disease; K59.00 Constipation, unspecified; Y83.8 Other surgical procedures as the cause of abnormal reaction of the patient, or of later complication, without mention of misadventure at the time of the procedure; E11.21 Type 2 diabetes mellitus with diabetic nephropathy; E88.09 Other disorders of plasma-protein metabolism, not elsewhere classified; E83.52 Hypercalcemia; E11.621 Type 2 diabetes mellitus with foot ulcer; E83.39 Other disorders of phosphorus metabolism; Z20.822 Contact with and (suspected) exposure to COVID-19; E11.65 Type 2 diabetes mellitus with hyperglycemia; E83.51 Hypocalcemia; E11.69 Type 2 diabetes mellitus with other specified complication; Z99.2 Dependence on renal dialysis; Z91.15 Patient's noncompliance with renal dialysis; Y92.89 Other specified places as the place of occurrence of the external cause
CPT/HCPCS: 36415; 71045; 73721; 76700-TC; 76770; 80048; 80053; 80202; 81000; 82962; 83605; 83690; 83735; 83880; 84100; 84484; 85025; 85651-TC; 86140; 87040; 87070-TC; 87081; 87086; 87186-TC; 90935; 90937; 93005; 93306; 96365; 96375; 99285; G0378; J0360; J0610; J0696; J0885; J1200; J1644; J1815; J2060; J2270; J2405; J3370; J7030; J7042; J7050

== ENCOUNTER 2022-07-09 17:20 | Inpatient (IN) | payer OTHER, MEDICAID ==
[~2022-07-09] VITALS: Ht 188 cm; Wt 81.6 kg
[2022-07-09 17:20] VITALS: BP_SYST 195
[~2022-07-09 17:20] MED LIST changes: +CAT1PAT TD; +CLONIDINE HCL PO; +ERGO1250 PO; +ERGO800011 PO; +FOLI-43 PO; +FURO-149 PO; +GABA-533 PO; +HYDR-4038 PO; +INSU100V9 SQ; +IRBE150T48 PO; +LEVO250T73 PO; +LIP40 PO; +LOSA50TA3 PO; +METO25TA3 PO; +METO25TA6 PO; +NEPH PO; +NOR10 PO; +PRO40 PO; +SEVE800T8 PO; +SSNOVOLOG SUBCUT
[2022-07-09] MEDS ORDERED: VANCOMYCIN HCL 1,000 MG in NS 250 ML IV ONE (19:30)
[2022-07-09 21:28] LABS: BASOPHILS % (AUTO) 0.1 % (0.0-2.0); EOSINOPHILS # (AUTO) 0.2 K/uL (0.0-0.4); EOSINOPHILS % (AUTO) 2.1 % (0.0-4.0); HEMATOCRIT 24.9 % (36-54); HEMOGLOBIN 8.5 g/dL (14.0-18.0); LYMPHOCYTES # (AUTO) 0.9 K/uL (1.0-5.5); LYMPHOCYTES % (AUTO) 10.4 % (20.5-51.5); MEAN CORPUSCULAR HEMOGLOBIN 30 pg (27-31); MEAN CORPUSCULAR HGB CONC 34 % (32-36); MEAN CORPUSCULAR VOLUME 88 fL (79.0-98.0); MONOCYTES # (AUTO) 0.7 K/uL (0.0-1.0); NEUTROPHILS # (AUTO) 7.2 K/uL (1.8-7.7); NEUTROPHILS % (AUTO) 79.4 % (40.0-70.0); PLATELET COUNT (AUTO) 171 K/uL (130-430); RED BLOOD CELL COUNT(AUTO) 2.83 MIL/uL (4.2-6.2); RED CELL DISTRIBUTION WIDTH 15.2 % (9.0-15.0); WHITE BLOOD COUNT (AUTO) 9.1 K/uL (4.8-10.8)
[2022-07-09] MEDS ORDERED: VANCOMYCIN HCL 1000 MG/VIAL IV ONE (21:40)
[2022-07-09 21:51] LABS: TOTAL BILIRUBIN 0.3 mg/dL (0.0-1.0)
[2022-07-09] MEDS ORDERED: MORPHINE 4 MG INJ. 4 MG/ML VIAL ONE (22:03)
[2022-07-09 22:08] LABS: CALCIUM 5.8 mg/dL (8.4-11.0)
[2022-07-09 22:09] LABS: CREATININE 13.99 mg/dL (0.55-1.30)
[2022-07-09] MEDS ORDERED: MORPHINE 4 MG INJ. 4 MG/ML VIAL IVP ONE (22:15)
[2022-07-09] MEDS ORDERED: INSULIN REGULAR, HUMAN 100 UNITS/ML, 3 ML VIAL (humuLIN R) SUBCUT PRN (23:00)
[2022-07-10] MEDS ORDERED: LABETALOL HCL 20 MG/4 ML CARTRIDGE IVP ONE (00:30)
[2022-07-10] MEDS ORDERED: ENALAPRILAT DIHYDRATE 1.25 MG/ML VIAL IVP ONE (00:30)
[2022-07-10] MEDS ORDERED: LORazepam 2 MG/ML VIAL IVP ONE ×2 (00:30→13:30)
[2022-07-10] MEDS ORDERED: MORPHINE 4 MG INJ. 4 MG/ML VIAL IVP ONE (08:30)
[2022-07-10] MEDS ORDERED: MUPIROCIN 2% TOPICAL OINTMENT 22 GM NS PRN (09:15)
[2022-07-10] MEDS ORDERED: DEXTROSE 50% JECT 50 ML DISP.SYRIN IVP PRN (09:15)
[2022-07-10] MEDS ORDERED: MORPHINE 2 MG/ML INJ. SYRINGE IVP PRN (09:15)
[2022-07-10] MEDS ORDERED: ACETAMINOPHEN 325 MG TABLET PO PRN ×2 (09:15→16:00)
[2022-07-10] MEDS ORDERED: DOCUSATE SODIUM 100 MG CAPSULE PO PRN (09:15)
[2022-07-10] MEDS ORDERED: MAGNESIUM SULFATE 50 ML IV PRN (09:15)
[2022-07-10] MEDS ORDERED: ZOLPIDEM TARTRATE 5 MG TABLET PO PRN (09:15)
[2022-07-10] MEDS ORDERED: INSULIN LISPRO SLIDING SCALE 100 UNITS/ML, 3 ML VIAL (humaLOG) SUBCUT PRN (09:15)
[2022-07-10] MEDS ORDERED: NALOXONE HCL 0.4 MG/ML AMP (NARCAN) IVP PRN ×2 (09:15)
[2022-07-10] MEDS ORDERED: POTASSIUM CHLORIDE 20 MEQ TAB.PRT.SR PO PRN (09:15)
[2022-07-10] MEDS ORDERED: NON-FORMULARY MEDICATION (Ergocalciferol (Vitamin D2) (Vitamin D2) 1 CAP) PO SCH (09:15)
[2022-07-10] MEDS: SEVELAMER CARBONATE 800 MG TABLET PO SCH ×2 (12:00→18:00)
[2022-07-10] MEDS ORDERED: LORazepam 2 MG/ML VIAL ONE (13:23)
[2022-07-10] MEDS ORDERED: HEPARIN SODIUM,PORCINE 5,000 UNITS/ML VIAL ONE (14:10)
[2022-07-10] MEDS ORDERED: HYDROCHLOROTHIAZIDE 25 MG TABLET (HCTZ) ONE (14:26)
[2022-07-10] MEDS ORDERED: METOPROLOL TARTRATE 25 MG TABLET ONE (14:27)
[2022-07-10] MEDS: GABAPENTIN 400 MG CAPSULE PO SCH ×2 (15:00→22:13)
[2022-07-10] MEDS ORDERED: DOCUSATE SODIUM 100 MG CAPSULE PO ONE (16:00)
[2022-07-10] MEDS ORDERED: ATORVASTATIN 20 MG TABLET PO ONE (16:00)
[2022-07-10] MEDS ORDERED: FUROSEMIDE 40 MG TABLET PO ONE (16:15)
[2022-07-10] MEDS ORDERED: FOLIC ACID 1 MG TABLET PO ONE (16:15)
[2022-07-10] MEDS ORDERED: LOSARTAN POTASSIUM 50 MG TABLET (COZAAR) PO ONE (16:30)
[2022-07-10 17:00] VITALS: BP_SYST 190
[2022-07-10] MEDS ORDERED: cefTRIAXone 1 GM in D5W 50 ML IV SCH (17:00)
[2022-07-10] MEDS: ONDANSETRON HCL 4 MG/2 ML VIAL IVP PRN (17:47)
[2022-07-10] MEDS: hydrALAZINE HCL 25 MG TABLET PO SCH (18:42)
[2022-07-10 19:00] VITALS: BP_SYST 180
[2022-07-10 20:00] VITALS: BP_SYST 180
[2022-07-10] MEDS: LANOLIN ALCOHOL/MO/W.PET/CERES 57 GM CREAM..G. TP SCH (21:00)
[2022-07-10] MEDS: DOCUSATE SODIUM 100 MG CAPSULE PO SCH (22:12)
[2022-07-10] MEDS: MORPHINE 2 MG/ML INJ. SYRINGE IVP PRN (22:12)
[2022-07-10] MEDS: METOPROLOL TARTRATE 25 MG TABLET PO SCH (22:14)
[2022-07-10] MEDS: HEPARIN SODIUM,PORCINE 5,000 UNITS/ML VIAL SUBCUT SCH (22:16)
[2022-07-11] VITALS: BP_SYST 157
[2022-07-11] MEDS: hydrALAZINE HCL 25 MG TABLET PO SCH ×4 (00:15→18:00)
[2022-07-11] MEDS: LORazepam 2 MG/ML VIAL IVP PRN ×2 (00:16→12:31)
[2022-07-11 05:00] VITALS: BP_SYST 186
[2022-07-11 08:52] LABS: CALCIUM 6.6 mg/dL (8.4-11.0); CREATININE 9.08 mg/dL (0.55-1.30)
[2022-07-11] MEDS ORDERED: IRBESARTAN 150 MG TABLET (AVAPRO) PO SCH (09:00)
[2022-07-11] MEDS: GABAPENTIN 400 MG CAPSULE PO SCH ×3 (09:00→21:13)
[2022-07-11 09:28] LABS: BASOPHILS # (AUTO) 0.1 K/uL (0.0-0.2); BASOPHILS % (AUTO) 0.8 % (0.0-2.0); EOSINOPHILS # (AUTO) 0.3 K/uL (0.0-0.4); EOSINOPHILS % (AUTO) 3.6 % (0.0-4.0); HEMATOCRIT 26.2 % (36-54); HEMOGLOBIN 8.9 g/dL (14.0-18.0); LYMPHOCYTES % (AUTO) 10.8 % (20.5-51.5); MEAN CORPUSCULAR HEMOGLOBIN 30 pg (27-31); MEAN CORPUSCULAR HGB CONC 34 % (32-36); MEAN CORPUSCULAR VOLUME 88 fL (79.0-98.0); MONOCYTES # (AUTO) 0.8 K/uL (0.0-1.0); MONOCYTES % (AUTO) 8.9 % (1.7-9.3); NEUTROPHILS # (AUTO) 6.9 K/uL (1.8-7.7); PLATELET COUNT (AUTO) 132 K/uL (130-430); WHITE BLOOD COUNT (AUTO) 9.1 K/uL (4.8-10.8)
[2022-07-11] MEDS: MORPHINE 2 MG/ML INJ. SYRINGE IVP PRN ×2 (10:19→17:30)
[2022-07-11] MEDS: ONDANSETRON HCL 4 MG/2 ML VIAL IVP PRN ×2 (10:20→17:31)
[2022-07-11] MEDS: LOSARTAN POTASSIUM 50 MG TABLET (COZAAR) PO SCH (10:21)
[2022-07-11] MEDS: amLODIPine BESYLATE 10 MG TABLET PO SCH (10:21)
[2022-07-11 10:32] VITALS: BP_SYST 200
[2022-07-11] MEDS: METOPROLOL TARTRATE 25 MG TABLET PO SCH ×2 (10:32→21:13)
[2022-07-11] MEDS: HEPARIN SODIUM,PORCINE 5,000 UNITS/ML VIAL SUBCUT SCH ×2 (10:33→14:46)
[2022-07-11 12:00] VITALS: BP_SYST 170
[2022-07-11] MEDS ORDERED: HEPARIN SODIUM,PORCINE 5,000 UNITS/ML VIAL MC PRN (14:00)
[2022-07-11 14:28] LABS: NEUTROPHILS % (AUTO) 75.9 % (40.0-70.0)
[2022-07-11 15:44] VITALS: BP_SYST 194
[2022-07-11] MEDS: ATORVASTATIN 20 MG TABLET PO SCH (17:19)
[2022-07-11] MEDS: SEVELAMER CARBONATE 800 MG TABLET PO SCH (17:20)
[2022-07-11] MEDS: DOCUSATE SODIUM 100 MG CAPSULE PO SCH ×2 (17:20→21:13)
[2022-07-11] MEDS: PANTOPRAZOLE SODIUM 40 MG TAB PO SCH (17:21)
[2022-07-11] MEDS: FOLIC ACID 1 MG TABLET PO SCH (17:21)
[2022-07-11] MEDS: CEFEPIME 1 GM in D5W 50 ML IV SCH (17:23)
[2022-07-11] MEDS: NEPHROVITE, (FOLIC ACID/VITAMIN B COMP W-C 1 TAB) PO SCH (17:24)
[2022-07-11] MEDS: FUROSEMIDE 40 MG TABLET PO SCH (17:29)
[2022-07-11] MEDS: LANOLIN ALCOHOL/MO/W.PET/CERES 57 GM CREAM..G. TP SCH ×2 (17:32→21:14)
[2022-07-11] MEDS: hydrALAZINE HCL 20 MG/ML VIAL IVP PRN (17:40)
[2022-07-11 21:00] VITALS: BP_SYST 190
[2022-07-12 01:00] VITALS: BP_SYST 166
[2022-07-12] MEDS: MORPHINE 2 MG/ML INJ. SYRINGE IVP PRN ×5 (01:26→22:00)
[2022-07-12] MEDS: hydrALAZINE HCL 25 MG TABLET PO SCH ×4 (01:26→18:20)
[2022-07-12 07:34] VITALS: BP_SYST 171
[2022-07-12 09:11] LABS: BASOPHILS # (AUTO) 0.1 K/uL (0.0-0.2); EOSINOPHILS # (AUTO) 0.4 K/uL (0.0-0.4); EOSINOPHILS % (AUTO) 4.6 % (0.0-4.0); HEMATOCRIT 28.3 % (36-54); HEMOGLOBIN 9.6 g/dL (14.0-18.0); LYMPHOCYTES # (AUTO) 0.8 K/uL (1.0-5.5); LYMPHOCYTES % (AUTO) 9.6 % (20.5-51.5); MEAN CORPUSCULAR HEMOGLOBIN 30 pg (27-31); MEAN CORPUSCULAR HGB CONC 34 % (32-36); MEAN CORPUSCULAR VOLUME 87 fL (79.0-98.0); MONOCYTES % (AUTO) 11.6 % (1.7-9.3); NEUTROPHILS # (AUTO) 6.2 K/uL (1.8-7.7); NEUTROPHILS % (AUTO) 73.2 % (40.0-70.0); PLATELET COUNT (AUTO) 207 K/uL (130-430); RED BLOOD CELL COUNT(AUTO) 3.26 MIL/uL (4.2-6.2); WHITE BLOOD COUNT (AUTO) 8.4 K/uL (4.8-10.8)
[2022-07-12 09:19] LABS: CALCIUM 6.9 mg/dL (8.4-11.0); CREATININE 7.6 mg/dL (0.55-1.30)
[2022-07-12] MEDS: LOSARTAN POTASSIUM 50 MG TABLET (COZAAR) PO SCH (10:31)
[2022-07-12] MEDS: amLODIPine BESYLATE 10 MG TABLET PO SCH (10:31)
[2022-07-12] MEDS: METOPROLOL TARTRATE 25 MG TABLET PO SCH ×2 (10:31→21:59)
[2022-07-12] MEDS: SEVELAMER CARBONATE 800 MG TABLET PO SCH ×3 (10:32→18:19)
[2022-07-12] MEDS: FUROSEMIDE 40 MG TABLET PO SCH (10:32)
[2022-07-12] MEDS: PANTOPRAZOLE SODIUM 40 MG TAB PO SCH (10:33)
[2022-07-12] MEDS: ATORVASTATIN 20 MG TABLET PO SCH (10:33)
[2022-07-12] MEDS: LANOLIN ALCOHOL/MO/W.PET/CERES 57 GM CREAM..G. TP SCH ×2 (10:34→22:06)
[2022-07-12] MEDS ORDERED: VANCOMYCIN HCL 1,000 MG in NS 250 ML IV ONE (11:00)
[2022-07-12 11:17] LABS: BILIRUBIN,URINE NEGATIVE (NEGATIVE); CLARITY/URINE CLEAR (CLEAR); COLOR,URINE YELLOW (YELLOW); GLUCOSE,URINE NEGATIVE (NEGATIVE); KETONES,URINE TRACE (NEGATIVE); LEUKOCYTE ESTERASE ,URINE NEGATIVE (NEGATIVE); NITRITE, URINE NEGATIVE (NEGATIVE); PROTEIN URINE 3+ (NEGATIVE); UROBILINOGEN,URINE 0.2 (0.2-1.0)
[2022-07-12 11:27] LABS: BLOOD, URINE TRACE (NEGATIVE)
[2022-07-12 11:29] LABS: BARBITURATE, URINE NEGATIVE (NEG <=200); BENZODIAZEPINE, URINE POSITIVE (NEG <=150); CANNABINOID, URINE POSITIVE (NEG <=50); COCAINE, URINE NEGATIVE (NEG <=150); METHAMPHETAMINES SCREEN,URINE NEGATIVE (NEG <=500); OPIATE, URINE POSITIVE (NEG <=100); PHENCYCLIDINE SCREEN,URINE NEGATIVE (NEG <=25); UR TRICYCLIC ANTIDEPRESSANTS NEGATIVE (NEG <=300); URINE AMPHETAMINE NEGATIVE (NEG <=500); URINE METHADONE NEGATIVE (NEG <=200); URINE OXYCODONE SCREEN NEGATIVE (NEG <=100); URINE PROPOXYPHENE SCREEN NEGATIVE (NEG <=300)
[2022-07-12] MEDS ORDERED: LORazepam 1 MG TABLET PO PRN (11:30)
[2022-07-12 11:51] VITALS: BP_SYST 181; BP_SYST 186
[2022-07-12 12:01] LABS: BACTERIA,URINE None Seen /HPF (None Seen); WBC,URINE 0-3 /HPF (0-3)
[2022-07-12] MEDS: ONDANSETRON HCL 4 MG/2 ML VIAL IVP PRN (12:05)
[2022-07-12] MEDS: hydrALAZINE HCL 20 MG/ML VIAL IVP PRN (12:05)
[2022-07-12] MEDS: DOCUSATE SODIUM 100 MG CAPSULE PO SCH ×2 (12:09→21:59)
[2022-07-12] MEDS: FOLIC ACID 1 MG TABLET PO SCH (12:09)
[2022-07-12] MEDS: NEPHROVITE, (FOLIC ACID/VITAMIN B COMP W-C 1 TAB) PO SCH (12:09)
[2022-07-12] MEDS: GABAPENTIN 400 MG CAPSULE PO SCH (12:10)
[2022-07-12] MEDS: HEPARIN SODIUM,PORCINE 5,000 UNITS/ML VIAL SUBCUT SCH ×2 (12:10→21:00)
[2022-07-12 12:16] LABS: PROTHROMBIN TIME 10.8 SECS (9.5-12.5)
[2022-07-12] MEDS ORDERED: MORPHINE SULFATE 15 MG TABLET.ER PO PRN (12:45)
[2022-07-12 13:04] VITALS: BP_SYST 133
[2022-07-12] MEDS ORDERED: GABAPENTIN 300 MG CAPSULE PO ONE (16:00)
[2022-07-12 16:14] VITALS: BP_SYST 155
[2022-07-12] MEDS: GABAPENTIN 300 MG CAPSULE PO SCH (21:58)
[2022-07-13 00:40] VITALS: BP_SYST 167
[2022-07-13] MEDS: CEFEPIME 1 GM in D5W 50 ML IV SCH ×2 (00:46→18:34)
[2022-07-13] MEDS: hydrALAZINE HCL 25 MG TABLET PO SCH ×4 (00:47→18:00)
[2022-07-13] MEDS: LORazepam 2 MG/ML VIAL IVP PRN (00:57)
[2022-07-13] MEDS: MORPHINE 2 MG/ML INJ. SYRINGE IVP PRN ×3 (02:23→15:13)
[2022-07-13 08:00] VITALS: BP_SYST 165
[2022-07-13 08:47] LABS: BASOPHILS # (AUTO) 0.1 K/uL (0.0-0.2); BASOPHILS % (AUTO) 0.9 % (0.0-2.0); EOSINOPHILS # (AUTO) 0.7 K/uL (0.0-0.4); HEMATOCRIT 26.4 % (36-54); LYMPHOCYTES # (AUTO) 1.1 K/uL (1.0-5.5); LYMPHOCYTES % (AUTO) 11.7 % (20.5-51.5); MEAN CORPUSCULAR HEMOGLOBIN 30 pg (27-31); MEAN CORPUSCULAR HGB CONC 34 % (32-36); MEAN CORPUSCULAR VOLUME 87 fL (79.0-98.0); MONOCYTES # (AUTO) 1.4 K/uL (0.0-1.0); MONOCYTES % (AUTO) 14.7 % (1.7-9.3); NEUTROPHILS # (AUTO) 6.2 K/uL (1.8-7.7); NEUTROPHILS % (AUTO) 65.7 % (40.0-70.0); PLATELET COUNT (AUTO) 203 K/uL (130-430); RED BLOOD CELL COUNT(AUTO) 3.04 MIL/uL (4.2-6.2); RED CELL DISTRIBUTION WIDTH 15.5 % (9.0-15.0); WHITE BLOOD COUNT (AUTO) 9.5 K/uL (4.8-10.8)
[2022-07-13] MEDS: amLODIPine BESYLATE 10 MG TABLET PO SCH (09:00)
[2022-07-13] MEDS: FUROSEMIDE 40 MG TABLET PO SCH ×2 (09:00→09:09)
[2022-07-13] MEDS: DOCUSATE SODIUM 100 MG CAPSULE PO SCH (09:00)
[2022-07-13] MEDS: PANTOPRAZOLE SODIUM 40 MG TAB PO SCH ×2 (09:00→09:09)
[2022-07-13] MEDS: NEPHROVITE, (FOLIC ACID/VITAMIN B COMP W-C 1 TAB) PO SCH ×2 (09:00→09:09)
[2022-07-13] MEDS: HEPARIN SODIUM,PORCINE 5,000 UNITS/ML VIAL SUBCUT SCH (09:00)
[2022-07-13] MEDS: METOPROLOL TARTRATE 25 MG TABLET PO SCH ×2 (09:00→20:51)
[2022-07-13] MEDS: LOSARTAN POTASSIUM 50 MG TABLET (COZAAR) PO SCH (09:00)
[2022-07-13] MEDS: ATORVASTATIN 20 MG TABLET PO SCH ×2 (09:00→09:09)
[2022-07-13] MEDS: SEVELAMER CARBONATE 800 MG TABLET PO SCH ×4 (09:08→18:00)
[2022-07-13] MEDS: GABAPENTIN 300 MG CAPSULE PO SCH ×3 (09:08→20:51)
[2022-07-13] MEDS: FOLIC ACID 1 MG TABLET PO SCH (09:09)
[2022-07-13] MEDS: LANOLIN ALCOHOL/MO/W.PET/CERES 57 GM CREAM..G. TP SCH (09:11)
[2022-07-13] MEDS: ONDANSETRON HCL 4 MG/2 ML VIAL IVP PRN ×2 (09:21→18:36)
[2022-07-13 10:24] LABS: CALCIUM 6.8 mg/dL (8.4-11.0); CREATININE 9.67 mg/dL (0.55-1.30)
[2022-07-13 13:56] VITALS: BP_SYST 127
[2022-07-13 15:11] VITALS: BP_SYST 147
[2022-07-13] MEDS ORDERED: HEPARIN SODIUM,PORCINE 5,000 UNITS/ML VIAL MC ONE ×2 (15:45)
[2022-07-13] MEDS ORDERED: EPOETIN ALFA-EPBX 4,000 UNITS/ML VIAL SUBCUT SCH (17:00)
[2022-07-13 17:35] VITALS: BP_SYST 173
[2022-07-13] MEDS ORDERED: CEFE1PIG3 IV (19:43)
[2022-07-13] MEDS ORDERED: EMOL396C TP (19:44)
[2022-07-13] MEDS ORDERED: HEPA500015 SUBCUT (19:44)
[2022-07-13] MEDS ORDERED: EPOE200011 SUBCUT (19:55)
[2022-07-13 20:33] VITALS: BP_SYST 184
[2022-07-13] MEDS: hydrALAZINE HCL 20 MG/ML VIAL IVP PRN (20:52)
== END 2022-07-13 21:25 | DRG 689 ==
LOC: SED 17:20 → STU 22:49
PROVIDERS: ADMIT General Practice; ATTEND General Practice
PROC: 5A1D70Z Performance of Urinary Filtration, Intermittent, Less than 6 Hours Per Day (ICD-10-PCS; principal; 2022-07-10)
PROC: 05HY33Z Insertion of Infusion Device into Upper Vein, Percutaneous Approach (ICD-10-PCS; 2022-07-10)
PROC: B54MZZA Ultrasonography of Right Upper Extremity Veins, Guidance (ICD-10-PCS; 2022-07-10)
PROC: 5A1D70Z Performance of Urinary Filtration, Intermittent, Less than 6 Hours Per Day (ICD-10-PCS; 2022-07-11)
PROC: 5A1D70Z Performance of Urinary Filtration, Intermittent, Less than 6 Hours Per Day (ICD-10-PCS; 2022-07-13)
DX: N39.0 Urinary tract infection, site not specified (principal); N17.0 Acute kidney failure with tubular necrosis; E44.0 Moderate protein-calorie malnutrition; L97.919 Non-pressure chronic ulcer of unspecified part of right lower leg with unspecified severity; L97.929 Non-pressure chronic ulcer of unspecified part of left lower leg with unspecified severity; E83.51 Hypocalcemia; E83.52 Hypercalcemia; D63.8 Anemia in other chronic diseases classified elsewhere; I50.9 Heart failure, unspecified; E78.5 Hyperlipidemia, unspecified; Z20.822 Contact with and (suspected) exposure to COVID-19; I11.0 Hypertensive heart disease with heart failure; E11.65 Type 2 diabetes mellitus with hyperglycemia; D63.1 Anemia in chronic kidney disease; Z68.23 Body mass index [BMI] 23.0-23.9, adult
CPT/HCPCS: 36415; 71045; 80048; 80053; 80202; 80307; 81000; 82962; 83036; 83605; 83735; 83880; 85025; 85610-TC; 85730-TC; 87040; 87081; 90935; 90937; 93005; 96365; 96375; 99285; C1751; G0378; J0360; J0692; J0696; J1644; J2060; J2270; J2405; J3370; J3475; J7030; J7050; J7060; Q5106

== ENCOUNTER 2022-09-11 08:44 | Inpatient (IN) | payer OTHER, MEDICAID ==
[~2022-09-11] VITALS: Ht 188 cm; Wt 114.8 kg
--- NOTE | 2022-09-11 07:52 | NUR ---
Pt appears to be asleep with both eyes closed.Still on hemodialysis. resting on bed with call light within reach.
[~2022-09-11 08:44] MED LIST changes: -CAT1PAT TD; +CEFE1PIG3 IV; -DOCU-144 PO; +EMOL396C TP; +EPOE200011 SUBCUT; -ERGO800011 PO; +HEPA500015 SUBCUT; -LEVO250T73 PO; -METO25TA3 PO; -ONDA-8 TL; -PSYL1PAC8 PO
--- NOTE | 2022-09-11 09:20 | NUR ---
ER at bedside examining patient.
--- NOTE | 2022-09-11 09:25 | NUR ---
Pt brought in by in wheelchair to bed 4. Pt A&Ox4, c/o swelling of extremities. Pt c/o of dull pounding pain in groin. Pain scale 8/10. Pt also c/o of pain in right foot, pain scale 9/10. Pt has a hx of HTN, Diabetes, and hyperlipidemia. Pt states he has not been compliant with medication regimens. Will continue to monitor and assess.
--- NOTE | 2022-09-11 09:32 | NUR ---
Lab at bedside.
[2022-09-11 09:35] VITALS: BP_SYST 149
[2022-09-11 09:48] LABS: BASOPHILS # (AUTO) 0.2 K/uL (0.0-0.2); BASOPHILS % (AUTO) 1.5 % (0.0-2.0); EOSINOPHILS # (AUTO) 0.4 K/uL (0.0-0.4); EOSINOPHILS % (AUTO) 3.9 % (0.0-4.0); HEMATOCRIT 26.9 % (36-54); HEMOGLOBIN 9.1 g/dL (14.0-18.0); LYMPHOCYTES # (AUTO) 0.7 K/uL (1.0-5.5); LYMPHOCYTES % (AUTO) 6.1 % (20.5-51.5); MEAN CORPUSCULAR HEMOGLOBIN 30 pg (27-31); MEAN CORPUSCULAR HGB CONC 34 % (32-36); MEAN CORPUSCULAR VOLUME 90 fL (79.0-98.0); MONOCYTES # (AUTO) 1.4 K/uL (0.0-1.0); MONOCYTES % (AUTO) 12.8 % (1.7-9.3); NEUTROPHILS # (AUTO) 8.3 K/uL (1.8-7.7); NEUTROPHILS % (AUTO) 75.7 % (40.0-70.0); PLATELET COUNT (AUTO) 242 K/uL (130-430); RED CELL DISTRIBUTION WIDTH 17.5 % (9.0-15.0); WHITE BLOOD COUNT (AUTO) 10.9 K/uL (4.8-10.8)
[2022-09-11 10:02] LABS: ANION GAP 17 (5-15); CHLORIDE 106 mmol/L (98-107); GLUCOSE 136 mg/dL (70-99)
[2022-09-11 10:17] LABS: ALANINE AMINOTRANSFERASE 58 U/L (12-78); ALBUMIN 2.6 g/dL (3.4-4.8); ASPARTATE AMINOTRANSFERASE 17 U/L (10-37); TOTAL BILIRUBIN 0.3 mg/dL (0.0-1.0)
[2022-09-11 10:20] LABS: CALCIUM 5.6 mg/dL (8.4-11.0); CREATININE 15.67 mg/dL (0.55-1.30); GFR AFRICAN AMERICAN 4 mL/min (>90); UREA NITROGEN, BLOOD 121 mg/dL (8-21)
[2022-09-11] MEDS ORDERED: CALCIUM GLUCONATE 1 GM in NS 100 ML IV ONE (10:30)
[2022-09-11] MEDS ORDERED: SODIUM BICARBONATE 8.4% JECT 50 MEQ/50 ML SYRINGE IVP ONE (10:30)
[2022-09-11] MEDS ORDERED: INSULIN REGULAR, HUMAN 10 UNITS/0.1 ML, 3 ML VIAL IVP ONE (10:45)
[2022-09-11] MEDS ORDERED: DEXTROSE 50% JECT 50 ML DISP.SYRIN IVP ONE (10:45)
--- NOTE | 2022-09-11 10:53 | NUR ---
Admit bed requested Patient will be admitted to care of . Admitted to TELE unit. Diagnosis RENAL FAILURE Inpatient (Yes or No) Y Observation (Yes or No) N Orientation concerns or request close to nursing station (Yes or No) N Covid Status NEG On vent or bipap N Isolation requirements N Needs a sitter N From Home (Yes or if No enter name of facility) HOME Requires Dialysis (Yes or No) YES Med Rec Completed (Yes of No) PENDING
[2022-09-11] MEDS: NORMAL SALINE 5 ML DISP.SYRIN IVF SCH ×3 (11:24→22:00)
--- NOTE | 2022-09-11 11:30 | NUR ---
UNABLE TO OBTAIN IV ACCESS, DR. TRACEY PLACE REJ IV CATH 18 G. SITE WNL.
[2022-09-11] MEDS ORDERED: MORPHINE 4 MG INJ. 4 MG/ML VIAL IVP ONE (11:45)
[2022-09-11] MEDS ORDERED: ONDANSETRON HCL 4 MG/2 ML VIAL IVP ONE (11:45)
--- NOTE | 2022-09-11 12:00 | NUR ---
PT RECEIVED CXR, REJ IV CATH PULLED OUT DURING PROCEDURE, PRESSURE APPLIED AND DRESSING PLACE TO SITE. DR. TRACEY MADE AWARE. PICC LINE HAS BEEN ORDERED.
--- NOTE | 2022-09-11 12:24 | NUR ---
MORPHINE 4MG IVP GIVEN FOR ABDOMINAL PAIN 05/18.
--- NOTE | 2022-09-11 12:37 | NUR ---
PT'S CXR NOT COMPLETED. MULTIMEDIA INSTRUCTIONAL DESIGNER CALLED TO [facility].
--- NOTE | 2022-09-11 13:15 | NUR ---
CONSULTATION PAGED/CALLED Reason for Consultation: [] RF Person Who was Notified: [] RAFAEL Consulting Physician: [] DR Fer PINEDA Associate Professor Of Biostatistics Specialty: [] NEPHRO Ordering Physician: [] DR CRAMER
--- NOTE | 2022-09-11 13:15 | NUR ---
admission patient admitted per order. patient is awke and alert was able to scoot from gurney to bed. patient educated service advocate contact light for assistance. call light is with him. patient has no complaints at this time.
--- NOTE | 2022-09-11 13:17 | NUR ---
CONSULTATION PAGED/CALLED Reason for Consultation: [] ELEVATED TROP Person Who was Notified: [] YASMINE AKHTAR Consulting Physician: [] YASMINE AKHTAR/DR Santy MONSALVE PLANT OPERATIONS VICE PRESIDENT FOR DR CARDOZO Landscape Contractor Specialty: [] CARDIO Ordering Physician: [] DR CRAMER
[2022-09-11 13:24] VITALS: BP_SYST 150
--- NOTE | 2022-09-11 13:30 | NUR ---
Patient will be admitted to care of edi nicholson. Admitted telemetry unit. Will go to room 118a. Belongings list completed. Complete and up to date summary report printed. SBAR report to be given at bedside with opportunity for questions.
[2022-09-11] MEDS ORDERED: INSULIN REGULAR, HUMAN 100 UNITS/ML, 3 ML VIAL (humuLIN R) SUBCUT PRN (13:45)
--- NOTE | 2022-09-11 13:49 | NUR ---
NEPHROLOGY CONSULT PER DR PINEDA IS COVERED BY DR JUNIOR FOR THIS WEEK. SPOKE TO JOEL TO INFORM DR JUNIOR TO GIVE US A CALL TO GET AN ORDER FOR HD TODAY. PT DID NOT HAVE HD FOR 5 DAYS.
[2022-09-11 15:42] LABS: ALBUMIN 2.4 g/dL (3.4-4.8); TOTAL BILIRUBIN 0.3 mg/dL (0.0-1.0)
[2022-09-11 15:55] LABS: CALCIUM 5.6 mg/dL (8.4-11.0)
[2022-09-11 15:56] LABS: CREATININE 16.05 mg/dL (0.55-1.30)
--- NOTE | 2022-09-11 16:26 | NUR ---
patients Accu check assessed at bedside is at 110. patient is awake and alert sitting in bed. patient has complaints of pain is scrotum will page dr. Debby varela for a second time. patient is eating cole crackers and milk. educted [employer] financial[employer] consultant light for assistance. call light is with him Addendum: 09/11/22 at 1730 by Shahnaz Gant RN Hemodialysis started , unable to place PICC or midline due to not being approved by nephro.
[2022-09-11] MEDS ORDERED: FERR-31 PO (17:09)
--- NOTE | 2022-09-11 17:30 | NUR ---
rn rounding patient appears to be resting with both eyes closed still receiving hemodialysis. patient has all safety precautions in place. call light is with in reach. patient has no other needs at this time. dr. simpson is at nurses station.
[2022-09-11] MEDS ORDERED: HEPARIN SODIUM,PORCINE 5,000 UNITS/ML VIAL IV ONE (18:30)
--- NOTE | 2022-09-11 18:45 | NUR ---
rn closing note patient appears to be resting with both eyes closed no signs of any distress, breathing is equal and non labored. still recieving hemodialysis will finish shortly. patient has call light with in reach. no other needs at this time.
[2022-09-11 21:00] VITALS: BP_SYST 135
[2022-09-11] MEDS: LOSARTAN POTASSIUM 50 MG TABLET (COZAAR) PO SCH (21:00)
[2022-09-11] MEDS: hydrALAZINE HCL 25 MG TABLET PO SCH (21:00)
[2022-09-11 23:20] VITALS: BP_SYST 146
[2022-09-12] MEDS: hydrALAZINE HCL 25 MG TABLET PO SCH ×4 (00:37→20:54)
[2022-09-12] MEDS: NORMAL SALINE 5 ML DISP.SYRIN IVF SCH ×2 (06:00→13:02)
--- NOTE | 2022-09-12 07:30 | NUR ---
OPENING NOTE PT RESTING IN BED. NO S/S ACUTE DISTRESS. LEFT UPPER CHEST PERMCATH NOTED. DRESSING KEPT C/D/I. NO IV ACCESS. NOTED PICC LINE ORDER FROM YESTERDAY. SAFETY PRECAUTION IN PLACE. WILL CONT TO MONITOR.
[2022-09-12 07:56] LABS: BASOPHILS # (AUTO) 0.1 K/uL (0.0-0.2); BASOPHILS % (AUTO) 1.2 % (0.0-2.0); EOSINOPHILS # (AUTO) 0.4 K/uL (0.0-0.4); EOSINOPHILS % (AUTO) 4.3 % (0.0-4.0); HEMATOCRIT 25.8 % (36-54); HEMOGLOBIN 8.6 g/dL (14.0-18.0); LYMPHOCYTES # (AUTO) 0.7 K/uL (1.0-5.5); LYMPHOCYTES % (AUTO) 8.4 % (20.5-51.5); MEAN CORPUSCULAR HEMOGLOBIN 30 pg (27-31); MEAN CORPUSCULAR HGB CONC 33 % (32-36); MEAN CORPUSCULAR VOLUME 90 fL (79.0-98.0); MONOCYTES # (AUTO) 1.1 K/uL (0.0-1.0); MONOCYTES % (AUTO) 13.1 % (1.7-9.3); NEUTROPHILS # (AUTO) 6.4 K/uL (1.8-7.7); PLATELET COUNT (AUTO) 223 K/uL (130-430); RED BLOOD CELL COUNT(AUTO) 2.88 MIL/uL (4.2-6.2); RED CELL DISTRIBUTION WIDTH 17.7 % (9.0-15.0); WHITE BLOOD COUNT (AUTO) 8.8 K/uL (4.8-10.8)
[2022-09-12 08:00] VITALS: BP_SYST 165
[2022-09-12 08:38] LABS: ALBUMIN 2.5 g/dL (3.4-4.8); PHOSPHORUS 10.4 mg/dL (2.7-4.5); TOTAL BILIRUBIN 0.4 mg/dL (0.0-1.0)
[2022-09-12 08:53] LABS: CALCIUM 6.3 mg/dL (8.4-11.0); CREATININE 12.02 mg/dL (0.55-1.30)
[2022-09-12] MEDS: LOSARTAN POTASSIUM 50 MG TABLET (COZAAR) PO SCH (08:58)
--- NOTE | 2022-09-12 09:28 | NUR ---
NOTES; NOTIFIED LAB VALUES, RECEIVED NEW ORDER.
[2022-09-12] MEDS ORDERED: CALCIUM GLUCONATE 1 GM/10 ML VIAL IVP ONE (09:30)
--- NOTE | 2022-09-12 10:49 | NUR ---
MD ROUNDS; AT BEDSIDE, ASSESSING PT. RECEIVED NEW ORDERS.
[2022-09-12 11:25] VITALS: BP_SYST 148
[2022-09-12] MEDS: SEVELAMER CARBONATE 800 MG TABLET PO SCH ×2 (11:38→17:42)
[2022-09-12] MEDS ORDERED: HEPARIN SODIUM,PORCINE 5,000 UNITS/ML VIAL MC ONE (12:00)
[2022-09-12] MEDS ORDERED: hydrALAZINE HCL 25 MG TABLET PO SCH (12:00)
--- NOTE | 2022-09-12 12:30 | NUR ---
DIALYSIS: 2.5L OUT
--- NOTE | 2022-09-12 14:04 | NUR ---
PT REQUESTS ANTI-ANXIETY MEDICATION. SPOKE WITH , RECEIVED NEW ORDER
[2022-09-12] MEDS: LORazepam 1 MG TABLET PO ONE ×2 (14:15→15:50)
[2022-09-12] MEDS ORDERED: CALCIUM GLUCONATE 2 GM in NS 100 ML IV ONE (15:00)
--- NOTE | 2022-09-12 15:29 | NUR ---
SPOKE WITH DR. JUNIOR THAT HE TOLD NURSES YESTERDAY: SINCE PT IS DIALYSIS, PT CANNOT HAVE PICC LINE NOR MIDLINE. SUGGESTS IJ PLACEMENT WITH .
--- NOTE | 2022-09-12 15:33 | NUR ---
CONSULTATION PAGED REASON FOR CONSULTATION:IJ LINE PLACEMEBT WAS CONSULT CALLED?Y PERSON WHO WAS NOTIFIED:EUGENIA CONSULTING PHYSICIAN:CRISPIN LUNA THIMBLE PRESS OPERATOR SPECIALTY:SURGEON THIMBLE PRESS OPERATOR PHONE NUMBER:[phone] REQUESTING PHYSICIAN:AKANKSHA ART
[2022-09-12] MEDS: GABAPENTIN 300 MG CAPSULE PO SCH ×2 (15:40→20:41)
[2022-09-12 15:42] VITALS: BP_SYST 145
--- NOTE | 2022-09-12 15:48 | NUR ---
SPOKE WITH DR. HDZ, HE IS NOT IN TOWN. WANTS THIS NURSE TO ASK IF THERE IS ANY CALCIUM ORAL ALTERNATIVE. IF NOT HE CAN COME TONIGHT. WILL CALL AND GET BACK TO DR. HDZ
--- NOTE | 2022-09-12 16:24 | NUR ---
SPOKE WITH DR. JUNIOR, D/C CALCIUM GLUCONATE IV FOR .RECEIVED P.O CALCIUM CARBONATE. OKAY FOR DR. ANDREINA YEPEZ TOMORROW FOR IJ PLACEMENT.
[2022-09-12] MEDS ORDERED: CALCIUM CARBONATE 500 MG/ TAB.CHEW PO ONE (16:30)
--- NOTE | 2022-09-12 16:47 | NUR ---
CALLED , VOICE BOX IS FULL
--- NOTE | 2022-09-12 17:53 | NUR ---
PAGED DR. CRAMER AGAIN FOR PAIN MEDICATION. PT C/O PAIN TO SCROTUM AREA.
--- NOTE | 2022-09-12 18:54 | NUR ---
CLOSING NOTE PT SLEEPING IN BED WITH EYES CLOSED. NON-LABORED AND REGULAR BREATHING NOTED. SAFETY PRECAUTION IN PLACE. CALL LIGHT WITHIN REACH. BED IS LOCKED AND AT LOW POSITION. WILL ENDORSE CARE TO SCIENTIFIC GLASS BLOWER NURSE.
--- NOTE | 2022-09-12 19:00 | NUR ---
I GOT THE REPORT FORM DAY TIME NURSING STAFF. PT IS AWAKE AND ALERT, COMPLAINING ABUT THE PAIN 10/10 IN THE GROIN AREA AND TOE. HE IS AMBULATORY AND ROOM AIR.
--- NOTE | 2022-09-12 19:15 | NUR ---
PT DOESN'T HAVE ANY IV ACCESS NOTED. WAITING FOR I J PLACEMENT AT THIS POINT.
[2022-09-12 20:00] VITALS: BP_SYST 163
--- NOTE | 2022-09-12 20:00 | NUR ---
I CHECKED THE MARS NOTICE THAT PATIENT DOESN'T HAVE ANY PAIN MEDICATION. VERIFIED WITH THE PTWHAT HE IS TAKING AT HOME AND HE SAID NORCO 10. GOT THE ORDER FOR NORCO 10 FROM
[2022-09-12] MEDS ORDERED: ONDANSETRON HCL 4 MG/2 ML VIAL IVP PRN (20:15)
[2022-09-12] MEDS ORDERED: NALOXONE HCL 0.4 MG/ML AMP (NARCAN) IVP PRN (20:15)
[2022-09-12] MEDS: HYDROcodone/ACETAMIN 10-325 MG TAB PO PRN (20:43)
[2022-09-12] MEDS: CALCIUM CARBONATE 500 MG/ TAB.CHEW PO SCH (20:48)
[2022-09-12] MEDS: HEPARIN SODIUM,PORCINE 5,000 UNITS/ML VIAL SUBCUT SCH (20:49)
[2022-09-12] MEDS: LORazepam 1 MG TABLET PO SCH (20:50)
[2022-09-12] MEDS: METOPROLOL TARTRATE 25 MG TABLET PO SCH (20:51)
--- NOTE | 2022-09-12 21:30 | NUR ---
PT GOT HIS PAIN MEDICATION. HE NOW RESTING IN BED.
--- NOTE | 2022-09-12 23:00 | NUR ---
PATIENT SLEEPING COMFORTABLY IN BED. EASILY AWAKENED UPON AROUSAL. BREATHING EVEN AND NON LABORED. NO SOB OR DYPSNEA. DENIES PAIN. CONTINUED ON TELEMETRY MONITORING. PATIENT CONTINENT B&B. HD PERMA CATH RUC IN PLACE. PATIENT TOLERATED DIALYSIS TX DONE TODAY. ASSISTED WITH TOILETING. CALL LIGHT IN REACH. BED LOCKED IN LOWEST POSITION. SAFETY MEASURES OBSERVED. NO CURRENT IV ACCESS IV ACCESS WILL BE PLACED 09/13/22. NO CHANGES IN BASELINE. ALL NEEDS MET. CONTINUE PLAN OF CARE.
[2022-09-13] VITALS: BP_SYST 166
[2022-09-13] MEDS: NORMAL SALINE 5 ML DISP.SYRIN IVF SCH ×4 (00:19→22:00)
[2022-09-13] MEDS: HYDROcodone/ACETAMIN 10-325 MG TAB PO PRN ×2 (02:35→09:04)
[2022-09-13] MEDS: hydrALAZINE HCL 25 MG TABLET PO SCH ×4 (02:37→20:16)
[2022-09-13 04:00] VITALS: BP_SYST 152
--- NOTE | 2022-09-13 05:49 | NUR ---
PATIENT STABLE AND RESTING IN BED. BREATHING EVEN AND NON LABORED. NO SOB/ DYSPNEA. ALERT AND VERBALLY RESPONSIVE. BP IS CONTROLLED WITH BP MEDICATION CURRENT BP 152/97 HR 95. LAST SBP ALSO <160 WNL. CHECKED PT CURRENT BS 80MG/DL. PATIENT REQUESTED JUICE. JUICE GIVEN TO PREVENT HYPOGLYCEMIA. PATIENT DRANK 180 ML JUICE. PATIENT CURRENTLY DENIES PAIN AND COMFORTABLY RESTING IN BED. CURRENT PAIN MEDICATION / INTERVENTIONS EFFECTIVE. ENCOURAGED TO REPOSITION FOR PAIN MANAGEMENT/COMFORT. ALL NEEDS MET. CONTINUE PLAN OF CARE.
--- NOTE | 2022-09-13 06:54 | NUR ---
FINAL ROUNDS MADE PATIENT RESTING IN BED EASILY AWAKENED UPON AROUSAL. VERBALLY RESPONSIVE. STABLE AND AFEBRILE. NO CHANGES IN CONDITION SAME BASELINE. BREATHING EVEN AND RESPONSIVE. NO SOB OR DYPSNEA. HD CATH RUC INTACT. DENIES PAIN 0/10. NO S/S ANXIETY NOTED. VS WNL. SAFETY MEASURES OBSERVED. PATIENT CLEAN AND DRY USES URINAL HAS CONTINENT B&B. IV ACCESS WILL BE PLACED TODAY. TELEMETRY MONITORING CONTINUED NO CHANGES FROM BASELINE HEART RHYTHM. BED LOCKED IN LOWEST POSITION. CALL LIGHT IN REACH. REPORT GIVEN TO ONCOMING NURSE.
--- NOTE | 2022-09-13 07:40 | NUR ---
OPENING NOTE; PT RESTING IN BED WITH NON-LABORED AND REGULAR BREATHING ON RA. NO S/S PAIN,SOB, OR DISCOMFORT. PERMCATH TO JULIET REMAIN INTACT. BED IS LOCKED AND AT LOW POSITION. CALL LIGHT WITHIN REACH. SAFETY PRECAUTION IN PLACE. WILL CONT TO MONITOR
[2022-09-13 08:00] VITALS: BP_SYST 150
[2022-09-13] MEDS: HEPARIN SODIUM,PORCINE 5,000 UNITS/ML VIAL SUBCUT SCH ×2 (08:58→20:23)
[2022-09-13] MEDS: FOLIC ACID 1 MG TABLET PO SCH (08:58)
[2022-09-13] MEDS: GABAPENTIN 300 MG CAPSULE PO SCH ×3 (08:59→20:29)
[2022-09-13] MEDS: FUROSEMIDE 20 MG TABLET PO SCH (08:59)
[2022-09-13] MEDS: ATORVASTATIN 20 MG TABLET PO SCH (09:00)
[2022-09-13] MEDS ORDERED: IRBESARTAN 150 MG TABLET (AVAPRO) PO SCH (09:00)
[2022-09-13] MEDS: LORazepam 1 MG TABLET PO SCH ×2 (09:01→20:16)
[2022-09-13] MEDS: METOPROLOL TARTRATE 25 MG TABLET PO SCH ×2 (09:01→20:17)
[2022-09-13] MEDS: SEVELAMER CARBONATE 800 MG TABLET PO SCH ×3 (09:02→17:44)
[2022-09-13] MEDS: amLODIPine BESYLATE 10 MG TABLET PO SCH (09:02)
[2022-09-13] MEDS: CALCIUM CARBONATE 500 MG/ TAB.CHEW PO SCH ×3 (09:02→20:17)
[2022-09-13] MEDS: NEPHROVITE, (FOLIC ACID/VITAMIN B COMP W-C 1 TAB) PO SCH (09:03)
[2022-09-13] MEDS: FERROUS SULFATE 325 MG TABLET.DR PO SCH (09:03)
[2022-09-13] MEDS: PANTOPRAZOLE SODIUM 40 MG TAB PO SCH (09:04)
--- NOTE | 2022-09-13 09:04 | NUR ---
NOTES; NOTIFIED BY RESOURCE NURSE THAT PT'S WAS MAD OVER THE PHONE BECAUSE PAIN MEDICATION WAS NOT GIVEN. PT WAS NOT C/O PAIN EARLIER. CHECKED ON PT, NOTICED THAT HE HAS PAIN TO HIS SCROTUM AREA. PROVIDED PAIN MEDICATION ORDERED. WILL CONT TO MONITOR
[2022-09-13 09:10] LABS: BASOPHILS # (AUTO) 0.2 K/uL (0.0-0.2); BASOPHILS % (AUTO) 1.9 % (0.0-2.0); EOSINOPHILS # (AUTO) 0.4 K/uL (0.0-0.4); EOSINOPHILS % (AUTO) 4.5 % (0.0-4.0); HEMATOCRIT 29.2 % (36-54); HEMOGLOBIN 9.7 g/dL (14.0-18.0); LYMPHOCYTES # (AUTO) 0.9 K/uL (1.0-5.5); LYMPHOCYTES % (AUTO) 10.7 % (20.5-51.5); MEAN CORPUSCULAR HEMOGLOBIN 30 pg (27-31); MEAN CORPUSCULAR HGB CONC 33 % (32-36); MEAN CORPUSCULAR VOLUME 91 fL (79.0-98.0); MONOCYTES # (AUTO) 1.2 K/uL (0.0-1.0); MONOCYTES % (AUTO) 14.5 % (1.7-9.3); NEUTROPHILS # (AUTO) 5.9 K/uL (1.8-7.7); NEUTROPHILS % (AUTO) 68.4 % (40.0-70.0); PLATELET COUNT (AUTO) 233 K/uL (130-430); RED BLOOD CELL COUNT(AUTO) 3.21 MIL/uL (4.2-6.2); RED CELL DISTRIBUTION WIDTH 17.9 % (9.0-15.0); WHITE BLOOD COUNT (AUTO) 8.6 K/uL (4.8-10.8)
[2022-09-13 11:28] VITALS: BP_SYST 133
[2022-09-13 11:53] LABS: ALBUMIN 2.6 g/dL (3.4-4.8); CALCIUM 7.5 mg/dL (8.4-11.0); PHOSPHORUS 8.5 mg/dL (2.7-4.5); TOTAL BILIRUBIN 0.4 mg/dL (0.0-1.0)
[2022-09-13 12:54] LABS: CREATININE 10.03 mg/dL (0.55-1.30)
--- NOTE | 2022-09-13 13:30 | NUR ---
WOUND CARE; WOUND CARE PROVIDED;SEE MST SHIFT ASSESSMENT.
--- NOTE | 2022-09-13 14:10 | NUR ---
ON FLOOR. HE WANTS TO TALK TO DIRECTLY. WILL PAGE DR. JUNIOR
--- NOTE | 2022-09-13 14:15 | NUR ---
NOTES; NO NEED OF IJ PLACEMENT PER DR. JUNIOR
--- NOTE | 2022-09-13 15:49 | NUR ---
NOTES; PT REFUSED MEDICATIONS, VERBALIZING " I AM MEDICATED ALL DAY TODAY."
--- NOTE | 2022-09-13 16:28 | NUR ---
Dietitian Recommendations * Continue Renal diet * Nutrition Consult for Renal diet education when medically appropriate LP, MS, RD Please refer to Nutrition F/U for details. Addendum: 09/13/22 at [address] Amended: Links added. Addendum: 09/13/22 at [address] CORRECTION: Dietitian Recommendations * Continue Renal diet * Nutrition Consult for Renal diet education when medically appropriate LP, MS, RD Please refer to Nutrition F/U for details. Addendum: 09/13/22 at [address] CORRECTION: * Add Deshawn BID (180 kcal/day, 5 gm protein/day)
[2022-09-13 17:03] VITALS: BP_SYST 130
--- NOTE | 2022-09-13 19:00 | NUR ---
CLOSING NOTE; PT RESTING IN BED. DENIES ANY PAIN OR DISCOMFORT. PERMCATH TO JULIET HORTON INTACT. BED IS LOCKED AND AT LOW POSITION. CALL LIGHT WITHIN REACH. SAFETY PRECAUTION IN PLACE. WILL CONT TO MONITOR.
[2022-09-13 20:00] VITALS: BP_SYST 159
[2022-09-14] MEDS: NORMAL SALINE 5 ML DISP.SYRIN IVF SCH ×4 (00:07→20:49)
[2022-09-14 01:22] VITALS: BP_SYST 145
[2022-09-14] MEDS: hydrALAZINE HCL 25 MG TABLET PO SCH ×4 (03:18→20:49)
--- NOTE | 2022-09-14 06:45 | NUR ---
CLOSING Patient is sleeping comfortable, no s/s of any distress, no c/o of pain, bed at lowest position,call light within reach, endorse to incoming nurse.
--- NOTE | 2022-09-14 07:10 | NUR ---
OPENING NOTE RECEIVED SBAR FROM NIGHT SEWER PIPE SORTER, PATIENT IN BED, RESPIRATIONS EVEN, NON LABORED, BED IN LOW AND LOCKED POSITION, CALL LIGHT WITHIN REACH. PATIENT REFUSES IV INSERTION. ABLE TO MAKE NEEDS KNOWN.
[2022-09-14 08:00] VITALS: BP_SYST 157
[2022-09-14 08:37] LABS: CALCIUM 7.4 mg/dL (8.4-11.0)
[2022-09-14] MEDS: SEVELAMER CARBONATE 800 MG TABLET PO SCH ×3 (08:44→17:40)
[2022-09-14] MEDS: PANTOPRAZOLE SODIUM 40 MG TAB PO SCH (08:44)
[2022-09-14] MEDS: CALCIUM CARBONATE 500 MG/ TAB.CHEW PO SCH ×2 (08:44→15:12)
[2022-09-14] MEDS: ATORVASTATIN 20 MG TABLET PO SCH (08:44)
[2022-09-14] MEDS: calcitrioL 0.25 MCG CAPSULE PO SCH (08:44)
[2022-09-14] MEDS: GABAPENTIN 300 MG CAPSULE PO SCH ×3 (08:45→20:49)
[2022-09-14] MEDS: FERROUS SULFATE 325 MG TABLET.DR PO SCH (08:45)
[2022-09-14] MEDS: NEPHROVITE, (FOLIC ACID/VITAMIN B COMP W-C 1 TAB) PO SCH (08:46)
[2022-09-14] MEDS: FOLIC ACID 1 MG TABLET PO SCH (08:46)
[2022-09-14] MEDS: LORazepam 1 MG TABLET PO SCH ×2 (08:47→20:48)
[2022-09-14] MEDS: FUROSEMIDE 20 MG TABLET PO SCH (08:48)
[2022-09-14] MEDS: HEPARIN SODIUM,PORCINE 5,000 UNITS/ML VIAL SUBCUT SCH ×2 (08:49→20:51)
[2022-09-14] MEDS: amLODIPine BESYLATE 10 MG TABLET PO SCH (08:50)
[2022-09-14] MEDS: METOPROLOL TARTRATE 25 MG TABLET PO SCH ×2 (08:50→20:48)
[2022-09-14 08:54] LABS: CREATININE 11.01 mg/dL (0.55-1.30)
--- NOTE | 2022-09-14 11:23 | NUR ---
YASMINE early bedside examining patient, new orders received
[2022-09-14 12:00] VITALS: BP_SYST 158
--- NOTE | 2022-09-14 12:30 | NUR ---
DIET PATIENT STATES THAT HE DID NOT UNDERSTAND YASMINE MATA, REQUEST TO CHANGE PATIENT TO A VEGETARIAN DIET AND WANTS TO BE ON REGULAR DIET
[2022-09-14] MEDS ORDERED: HEPARIN SODIUM,PORCINE 5,000 UNITS/ML VIAL SUBCUT ONE (13:45)
--- NOTE | 2022-09-14 14:07 | NUR ---
DIET SPOKE WITH YASMINE MATA NEW ORDERS RECEIVED FOR DIET
[2022-09-14 16:00] VITALS: BP_SYST 137
--- NOTE | 2022-09-14 16:55 | NUR ---
NURSE NOTE PATIENT IN BED, EYES CLOSED, RESPIRATIONS EVEN, NON LABORED, BED IN LOW AND LOCKED POSITION CALL LIGHT WITHIN REACH.
[2022-09-14] MEDS: EPOETIN ALFA-EPBX 4,000 UNITS/ML VIAL SUBCUT SCH (17:40)
--- NOTE | 2022-09-14 19:25 | NUR ---
CLOSING NOTE PROVIDED SBAR TO NIGHT RN. PATIENT IN BED, AWAKE, ABLE TO MAKE NEEDS KNOWN. BED IN LOW AND LOCKED POSITION, CALL LIGHT WITHIN REACH, NO IV ACCESS MD AWARE. ENDORSED CARE TO NIGHT RN.
[2022-09-14 20:00] VITALS: BP_SYST 146
[2022-09-14] MEDS: HYDROcodone/ACETAMIN 10-325 MG TAB PO PRN (23:09)
--- NOTE | 2022-09-15 02:15 | NUR ---
Dr. Shukla paged: Dr. Shukla was called due to patient request for sleeping medication. New order was received for restoril order was noted and carried out.
[2022-09-15 02:30] VITALS: BP_SYST 174
[2022-09-15] MEDS: TEMAZEPAM 15 MG CAPSULE PO PRN ×2 (02:47→23:23)
[2022-09-15] MEDS: hydrALAZINE HCL 25 MG TABLET PO SCH ×4 (02:47→21:03)
[2022-09-15] MEDS: NORMAL SALINE 5 ML DISP.SYRIN IVF SCH ×3 (05:30→20:54)
[2022-09-15 06:43] LABS: BASOPHILS # (AUTO) 0.1 K/uL (0.0-0.2); BASOPHILS % (AUTO) 1.4 % (0.0-2.0); EOSINOPHILS # (AUTO) 0.4 K/uL (0.0-0.4); EOSINOPHILS % (AUTO) 4.5 % (0.0-4.0); HEMOGLOBIN 8.7 g/dL (14.0-18.0); LYMPHOCYTES % (AUTO) 9.6 % (20.5-51.5); MEAN CORPUSCULAR HEMOGLOBIN 30 pg (27-31); MEAN CORPUSCULAR HGB CONC 34 % (32-36); MEAN CORPUSCULAR VOLUME 90 fL (79.0-98.0); MONOCYTES # (AUTO) 1.4 K/uL (0.0-1.0); MONOCYTES % (AUTO) 14.2 % (1.7-9.3); NEUTROPHILS % (AUTO) 70.3 % (40.0-70.0); PLATELET COUNT (AUTO) 233 K/uL (130-430); RED BLOOD CELL COUNT(AUTO) 2.88 MIL/uL (4.2-6.2); RED CELL DISTRIBUTION WIDTH 16.9 % (9.0-15.0); WHITE BLOOD COUNT (AUTO) 9.9 K/uL (4.8-10.8)
[2022-09-15 06:53] LABS: CALCIUM 7.4 mg/dL (8.4-11.0)
--- NOTE | 2022-09-15 07:15 | NUR ---
OPENING NOTE RECEIVED SBAR FROM NIGHT RN. PATIENT IN BED, RESPIRATIONS EVEN, NON LABORED, BED IN LOW AND LOCKED POSITION, CALL LIGHT WITHIN REACH.
[2022-09-15 08:00] VITALS: BP_SYST 105
[2022-09-15] MEDS: SEVELAMER CARBONATE 800 MG TABLET PO SCH ×3 (08:38→17:58)
[2022-09-15] MEDS: METOPROLOL TARTRATE 25 MG TABLET PO SCH ×2 (08:38→20:53)
[2022-09-15] MEDS: amLODIPine BESYLATE 10 MG TABLET PO SCH (08:39)
[2022-09-15] MEDS: FERROUS SULFATE 325 MG TABLET.DR PO SCH (08:39)
[2022-09-15] MEDS: FUROSEMIDE 20 MG TABLET PO SCH (08:39)
[2022-09-15] MEDS: NEPHROVITE, (FOLIC ACID/VITAMIN B COMP W-C 1 TAB) PO SCH (08:39)
[2022-09-15] MEDS: calcitrioL 0.25 MCG CAPSULE PO SCH (08:39)
[2022-09-15] MEDS: PANTOPRAZOLE SODIUM 40 MG TAB PO SCH (08:39)
[2022-09-15] MEDS: GABAPENTIN 300 MG CAPSULE PO SCH ×3 (08:39→20:53)
[2022-09-15] MEDS: FOLIC ACID 1 MG TABLET PO SCH (08:40)
[2022-09-15] MEDS: LORazepam 1 MG TABLET PO SCH ×2 (08:40→20:53)
[2022-09-15] MEDS: ATORVASTATIN 20 MG TABLET PO SCH (08:40)
[2022-09-15] MEDS: HEPARIN SODIUM,PORCINE 5,000 UNITS/ML VIAL SUBCUT SCH ×2 (08:41→20:54)
[2022-09-15 10:07] LABS: CREATININE 9.7 mg/dL (0.55-1.30)
--- NOTE | 2022-09-15 10:15 | NUR ---
CRITICAL CALLED AND SPOKE WITH NICOLE AT DR PINEDA'S OFFICE LEFT MESSAGE REGARDING PATIENTS SETH 9.70
--- NOTE | 2022-09-15 10:24 | NUR ---
NURSE NOTE PATIENT IN BED, RESPIRATIONS EVEN, NON LABORED, BED IN LOW AND LOCKED POSITION, CALL LIGHT WITHIN REACH,. PATIENT REFUSED TO ALLOW ME TO ASSESS WOUNDS ON BILAT FEET. EDUCATED PATIENT REGARDING THE INDICATIONS OF WOUND CARE. PATIENT VERBALIZED UNDERSTANDING AND CONTINUED TO REFUSE.
--- NOTE | 2022-09-15 11:27 | NUR ---
Ski Patroller POSTDOCTORAL FELLOW received a referral to see pt. for non compliance POSTDOCTORAL FELLOW introduced self to pt who was concurrently receiving HD. Pt. was kind an pleasant, amenable to this interview. Pt. stated he lives at home with family. . When POSTDOCTORAL FELLOW asked pt. about his compliance with HD, pt. stated he realizes he has been missing apts. He feels a little anxious about going. Pt. stated he realizes he needs to go to HD and Dr. Hess has set up HD t [facility]. It use to be with [facility]. Additionally, Dr. Hess will prescribe ativan for pt. when he goes to HD for his anxiety. POSTDOCTORAL FELLOW will remain available as needed.
[2022-09-15 12:00] VITALS: BP_SYST 132
--- NOTE | 2022-09-15 15:42 | NUR ---
NURSE NOTE PATIENT IN BED RESPIRATIONS EVEN NON LABORED, BED IN LOW AND LOCKED POSITION, CALL LIGHT WITHIN REACH. DENIES ANY PAIN OR DISCOMFORT
--- NOTE | 2022-09-15 15:49 | NUR ---
Received telephone call from Dr. Vinson who advised that he is no longer the patient's multiple games dealer. He states the patient is non compliant with his dialysis, he arranged for the patient to go to [facility] and he was a no show. Per , he is cleared for discharge, but the patient needs a new multiple games dealer and for dialysis to be arranged for him. I advised the that I will provide this information to the CM for further follow up. I advised Patricia RODRÍGUEZ CM of the conversation with the . Arrangements are being made to get a dialysis schedule for the patient.
[2022-09-15 16:00] VITALS: BP_SYST 127
--- NOTE | 2022-09-15 17:18 | NUR ---
Patient has chair time for dialysis at [facility] at 2:30 PM.
--- NOTE | 2022-09-15 19:45 | NUR ---
CLOSING NOTE PROVIDED SBAR TO NIGHT RN. PATIENT IN BED, RESPIRATIONS EVEN NON LABORED, BED IN LOW AND LOCKED POSITION, CALL LIGHT WITHIN REACH, ENDORSED CARE TO NIGHT RN. PATIENT TO HAVE DIALYSIS TOMORROW
[2022-09-15 20:00] VITALS: BP_SYST 165
[2022-09-16] VITALS: BP_SYST 120
[2022-09-16] MEDS: hydrALAZINE HCL 25 MG TABLET PO SCH ×3 (02:30→15:00)
[2022-09-16] MEDS: NORMAL SALINE 5 ML DISP.SYRIN IVF SCH ×2 (02:32→14:00)
--- NOTE | 2022-09-16 02:45 | NUR ---
2000 OPENING NOTES: Patient received from AM shift nurse. Patient is AA&Ox4 able to make needs known with call light within reach. Chest rise is even and unlabored on RA. Safety measures are in place as per per protocol. Will resume care. 2200: Patient has been assessed as per protocol. Patient has received 2100 scheduled medications as ordered. Patient is independent of ADL but supervision was provided during evening rounds. Patient is able to verbalize needs and has call light within reach. Will continue to monitor. 0000: Midnight round. Patient is noted to be awake and watching television on his phone. BS and v/s were assigned at this time. BS and V/S were noted to be WNL at this time. Wound care has been offered x2 at this point and patient continues to refuse. Will continue to monitor throughout the shift. Patient requested PRN sleep aid at this time. 0230 V/S were reassessed at this time and scheduled Hydralazine was given as ordered. Patient is now sleeping at this time no s/s of distress is noted.
[2022-09-16 05:59] LABS: BASOPHILS # (AUTO) 0.1 K/uL (0.0-0.2); EOSINOPHILS # (AUTO) 0.4 K/uL (0.0-0.4); EOSINOPHILS % (AUTO) 4.3 % (0.0-4.0); HEMATOCRIT 24.6 % (36-54); HEMOGLOBIN 8.2 g/dL (14.0-18.0); LYMPHOCYTES # (AUTO) 0.9 K/uL (1.0-5.5); MEAN CORPUSCULAR HEMOGLOBIN 30 pg (27-31); MEAN CORPUSCULAR HGB CONC 34 % (32-36); MEAN CORPUSCULAR VOLUME 90 fL (79.0-98.0); MONOCYTES # (AUTO) 1.6 K/uL (0.0-1.0); MONOCYTES % (AUTO) 15.1 % (1.7-9.3); NEUTROPHILS # (AUTO) 7.4 K/uL (1.8-7.7); NEUTROPHILS % (AUTO) 70.6 % (40.0-70.0); PLATELET COUNT (AUTO) 201 K/uL (130-430); RED BLOOD CELL COUNT(AUTO) 2.74 MIL/uL (4.2-6.2); RED CELL DISTRIBUTION WIDTH 17.2 % (9.0-15.0); WHITE BLOOD COUNT (AUTO) 10.5 K/uL (4.8-10.8)
[2022-09-16 06:12] LABS: CALCIUM 7.3 mg/dL (8.4-11.0)
[2022-09-16 06:29] LABS: CREATININE 10.93 mg/dL (0.55-1.30)
--- NOTE | 2022-09-16 06:42 | NUR ---
CLOSING NOTES: Patient in bed, respirations even and unlabored, no s/s of distress are noted at this time. Patient is AA&Ox4 able to make needs known with call light within reach. Safety measures are in place as per protocol. Will differ further care to AM shift nurse for continuity of care.
--- NOTE | 2022-09-16 06:45 | NUR ---
CRITICAL LAB: from Laboratory called with critical lab value for Creatine of 10.93. Medical record number and patient name verified. Read back of values done. Dr. Hess and Dr. Shukla notified of value. No new orders given at this time, since patient is scheduled for dialysis this morning.
--- NOTE | 2022-09-16 07:20 | NUR ---
OPENING NOTE PATIENT RESTING IN BED, RESPIRATIONS EVEN, NON LABORED, BED IN LOW AND LOCKED POSITION, ENCOURAGED TO USE CALL LIGHT FOR ASSISTANCE. DENIES ANY PAIN OR DISCOMFORT. WILL CONT TO MONITOR.
[2022-09-16 08:00] VITALS: BP_SYST 151
[2022-09-16] MEDS ORDERED: FUROSEMIDE 20 MG TABLET ONE (08:52)
[2022-09-16] MEDS: NEPHROVITE, (FOLIC ACID/VITAMIN B COMP W-C 1 TAB) PO SCH (08:57)
[2022-09-16] MEDS: amLODIPine BESYLATE 10 MG TABLET PO SCH (08:58)
[2022-09-16] MEDS: SEVELAMER CARBONATE 800 MG TABLET PO SCH ×2 (08:58→12:05)
[2022-09-16] MEDS: PANTOPRAZOLE SODIUM 40 MG TAB PO SCH (08:58)
[2022-09-16] MEDS: GABAPENTIN 300 MG CAPSULE PO SCH ×2 (08:58→15:00)
[2022-09-16] MEDS: LORazepam 1 MG TABLET PO SCH (08:59)
[2022-09-16] MEDS: calcitrioL 0.25 MCG CAPSULE PO SCH (08:59)
[2022-09-16] MEDS: FUROSEMIDE 20 MG TABLET PO SCH (08:59)
[2022-09-16] MEDS: FOLIC ACID 1 MG TABLET PO SCH (09:00)
[2022-09-16] MEDS: METOPROLOL TARTRATE 25 MG TABLET PO SCH (09:00)
[2022-09-16] MEDS: FERROUS SULFATE 325 MG TABLET.DR PO SCH (09:00)
[2022-09-16] MEDS: ATORVASTATIN 20 MG TABLET PO SCH (09:01)
[2022-09-16] MEDS: HEPARIN SODIUM,PORCINE 5,000 UNITS/ML VIAL SUBCUT SCH (09:05)
[2022-09-16 11:27] VITALS: BP_SYST 146
--- NOTE | 2022-09-16 11:30 | NUR ---
WOUND CARE; WOUND CARE PROVIDED. SEE MST SHIFT ASSESSMENT
[2022-09-16] MEDS: HYDROcodone/ACETAMIN 10-325 MG TAB PO PRN (12:36)
--- NOTE | 2022-09-16 16:00 | NUR ---
SPOKE WITH RASHMI ( Shane/Lowell) REGARDING PT'S DIALYSIS SCHEDULE: [facility]. [address] [address], [place] [address]. [phone] M/W/F AT 2:30PM. SHE RECOMMENDS THAT PT NEEDS TO GET THERE THIS WEDNESDAY BY 1:30PM FOR PAPERWORK.
[2022-09-16 16:15] VITALS: BP_SYST 148
[2022-09-16 16:26] VITALS: BP_SYST 137
[2022-09-16] MEDS: EPOETIN ALFA-EPBX 4,000 UNITS/ML VIAL SUBCUT SCH (17:00)
--- NOTE | 2022-09-16 17:00 | NUR ---
D/C Patient Patient given medication reconciliation form and D/C instructions. Exit Care provided. Patient verbalized understanding. MD discussed with patient the results and treatment provided. Ambulatory with steady gait for discharge to home. Patient in stable condition, ID band removed. Patient educated on pain management. All belongings sent with patient.
== END 2022-09-16 17:00 | disposition home or self-care (01) | DRG 640 ==
LOC: SED 08:44 → STU 10:45
PROVIDERS: ADMIT Internal Medicine; ATTEND Internal Medicine
PROC: 5A1D70Z Performance of Urinary Filtration, Intermittent, Less than 6 Hours Per Day (ICD-10-PCS; principal; 2022-09-11)
PROC: 5A1D70Z Performance of Urinary Filtration, Intermittent, Less than 6 Hours Per Day (ICD-10-PCS; 2022-09-12)
PROC: 5A1D70Z Performance of Urinary Filtration, Intermittent, Less than 6 Hours Per Day (ICD-10-PCS; 2022-09-16)
PROC: 05HY33Z Insertion of Infusion Device into Upper Vein, Percutaneous Approach (ICD-10-PCS; 2022-09-16)
DX: E87.70 Fluid overload, unspecified (principal); E43 Unspecified severe protein-calorie malnutrition; N18.6 End stage renal disease; I13.2 Hypertensive heart and chronic kidney disease with heart failure and with stage 5 chronic kidney disease, or end stage renal disease; E87.5 Hyperkalemia; E11.22 Type 2 diabetes mellitus with diabetic chronic kidney disease; Z20.822 Contact with and (suspected) exposure to COVID-19; D63.1 Anemia in chronic kidney disease; E11.40 Type 2 diabetes mellitus with diabetic neuropathy, unspecified; E78.5 Hyperlipidemia, unspecified; E83.39 Other disorders of phosphorus metabolism; E83.51 Hypocalcemia; I50.9 Heart failure, unspecified; Z99.2 Dependence on renal dialysis; Z79.899 Other long term (current) drug therapy; Z91.199 Patient's noncompliance with other medical treatment and regimen due to unspecified reason; Z68.32 Body mass index [BMI] 32.0-32.9, adult
CPT/HCPCS: 36415; 71045; 76870-TC; 80048; 80053; 83735; 83880; 84100; 84484; 85025; 87081; 93005; 99291; G0378; J0610; J1644; J1815; J2270; J2405; Q5106

== ENCOUNTER 2022-10-05 11:11 | Inpatient (IN) | payer OTHER, MEDICAID ==
[~2022-10-05] VITALS: Ht 188 cm; Wt 81.6 kg
[~2022-10-05 11:11] MED LIST changes: +FERR-31 PO
[2022-10-05 12:00] VITALS: BP_SYST 171
[2022-10-05 12:40] LABS: BASOPHILS # (AUTO) 0.1 K/uL (0.0-0.2); BASOPHILS % (AUTO) 0.7 % (0.0-2.0); EOSINOPHILS % (AUTO) 0.3 % (0.0-4.0); HEMATOCRIT 29.9 % (36-54); HEMOGLOBIN 9.7 g/dL (14.0-18.0); LYMPHOCYTES # (AUTO) 0.6 K/uL (1.0-5.5); LYMPHOCYTES % (AUTO) 5.3 % (20.5-51.5); MEAN CORPUSCULAR HEMOGLOBIN 29 pg (27-31); MEAN CORPUSCULAR HGB CONC 33 % (32-36); MEAN CORPUSCULAR VOLUME 90 fL (79.0-98.0); MONOCYTES # (AUTO) 1.2 K/uL (0.0-1.0); MONOCYTES % (AUTO) 11.1 % (1.7-9.3); NEUTROPHILS # (AUTO) 9.3 K/uL (1.8-7.7); NEUTROPHILS % (AUTO) 82.6 % (40.0-70.0); PLATELET COUNT (AUTO) 275 K/uL (130-430); RED BLOOD CELL COUNT(AUTO) 3.33 MIL/uL (4.2-6.2); RED CELL DISTRIBUTION WIDTH 17.1 % (9.0-15.0); WHITE BLOOD COUNT (AUTO) 11.3 K/uL (4.8-10.8)
[2022-10-05 12:51] LABS: ANION GAP 19 (5-15); CALCIUM 7.8 mg/dL (8.4-11.0); CHLORIDE 98 mmol/L (98-107); GLUCOSE 150 mg/dL (70-99)
[2022-10-05 12:54] LABS: GFR AFRICAN AMERICAN 5 mL/min (>90)
[2022-10-05 12:58] LABS: ALANINE AMINOTRANSFERASE 222 U/L (12-78); ALBUMIN 3.1 g/dL (3.4-4.8); ASPARTATE AMINOTRANSFERASE 166 U/L (10-37); TOTAL BILIRUBIN 0.6 mg/dL (0.0-1.0)
[2022-10-05 13:02] LABS: CREATININE 13.26 mg/dL (0.55-1.30); UREA NITROGEN, BLOOD 108 mg/dL (8-21)
[2022-10-05] MEDS ORDERED: SODIUM ZIRCONIUM CYCLOSILICATE 10 GM POWD.PACK PO ONE (13:45)
[2022-10-05] MEDS ORDERED: INSULIN REGULAR, HUMAN 10 UNITS/0.1 ML, 3 ML VIAL IVP ONE (13:45)
[2022-10-05] MEDS ORDERED: DEXTROSE 50% JECT 50 ML DISP.SYRIN IVP ONE (13:45)
[2022-10-05] MEDS ORDERED: ONDANSETRON HCL 4 MG/2 ML VIAL IVP ONE (14:00)
[2022-10-05] MEDS ORDERED: MORPHINE 4 MG INJ. 4 MG/ML VIAL IVP ONE (14:00)
[2022-10-05] MEDS ORDERED: ONDANSETRON HCL 4 MG/2 ML VIAL IVP PRN (15:00)
[2022-10-05] MEDS ORDERED: ACETAMINOPHEN 500 MG TABLET PO PRN (15:15)
[2022-10-05] MEDS ORDERED: INSULIN REGULAR, HUMAN 10 UNITS/0.1 ML, 3 ML VIAL ONE (16:45)
[2022-10-05 20:00] VITALS: BP_SYST 186
[2022-10-06] VITALS (7 sets, daily range): BP systolic 136–189
[2022-10-06] MEDS: clonazePAM 0.5 MG TABLET PO SCH ×3 (01:04→21:32)
[2022-10-06] MEDS: KETOROLAC TROMETHAMINE 15 MG VIAL IVP PRN (01:29)
[2022-10-06] MEDS ORDERED: HEPARIN SODIUM,PORCINE 5,000 UNITS/ML VIAL MC ONE ×2 (17:30→17:45)
[2022-10-06] MEDS ORDERED: hydrALAZINE HCL 20 MG/ML VIAL IVP PRN (21:30)
[2022-10-06] MEDS ORDERED: INSULIN LISPRO SLIDING SCALE 100 UNITS/ML, 3 ML VIAL (humaLOG) SUBCUT PRN (21:30)
[2022-10-06] MEDS: METOPROLOL SUCCINATE 50 MG TAB.SR.24H (TOPROL XL) PO SCH (22:53)
[2022-10-07 00:54] VITALS: BP_SYST 137
[2022-10-07] MEDS: KETOROLAC TROMETHAMINE 15 MG VIAL IVP PRN (02:56)
[2022-10-07 07:30] VITALS: BP_SYST 162
[2022-10-07] MEDS: clonazePAM 0.5 MG TABLET PO SCH ×2 (08:14→20:26)
[2022-10-07] MEDS: METOPROLOL SUCCINATE 50 MG TAB.SR.24H (TOPROL XL) PO SCH ×2 (08:14→20:26)
[2022-10-07] MEDS ORDERED: SEVE800T8 PO (08:55)
[2022-10-07] MEDS ORDERED: HYDR-4038 PO (08:55)
[2022-10-07] MEDS ORDERED: FURO-149 PO (08:55)
[2022-10-07] MEDS ORDERED: KETOROLAC TROMETHAMINE 15 MG VIAL IM PRN ×2 (10:00→10:15)
[2022-10-07 12:00] VITALS: BP_SYST 139
[2022-10-07 16:00] VITALS: BP_SYST 155
[2022-10-07] MEDS ORDERED: SEVELAMER CARBONATE 800 MG TABLET PO ONE (18:15)
[2022-10-07] MEDS ORDERED: amLODIPine BESYLATE 10 MG TABLET PO ONE (18:15)
[2022-10-07] MEDS ORDERED: hydrALAZINE HCL 25 MG TABLET PO ONE (18:30)
[2022-10-07] MEDS ORDERED: MORPHINE 4 MG INJ. 4 MG/ML VIAL IVP ONE (19:45)
[2022-10-07 20:00] VITALS: BP_SYST 138
[2022-10-07] MEDS ORDERED: METOPROLOL TARTRATE 25 MG TABLET PO SCH (21:00)
[2022-10-07 22:00] VITALS: BP_SYST 138
[2022-10-08] VITALS: BP_SYST 134
[2022-10-08] MEDS: hydrALAZINE HCL 25 MG TABLET PO SCH ×4 (00:33→18:00)
[2022-10-08 07:10] VITALS: BP_SYST 148
[2022-10-08] MEDS: SEVELAMER CARBONATE 800 MG TABLET PO SCH ×3 (08:06→18:43)
[2022-10-08] MEDS: clonazePAM 0.5 MG TABLET PO SCH (08:06)
[2022-10-08] MEDS ORDERED: IRBESARTAN 150 MG TABLET (AVAPRO) PO SCH (09:00)
[2022-10-08] MEDS ORDERED: PANTOPRAZOLE SODIUM 40 MG TAB PO SCH (09:00)
[2022-10-08] MEDS ORDERED: LOSARTAN POTASSIUM 50 MG TABLET (COZAAR) PO SCH (09:00)
[2022-10-08] MEDS ORDERED: amLODIPine BESYLATE 10 MG TABLET PO SCH (09:00)
[2022-10-08] MEDS ORDERED: FERROUS SULFATE 325 MG TABLET.DR PO SCH (09:00)
[2022-10-08] MEDS ORDERED: FUROSEMIDE 40 MG TABLET PO SCH (09:00)
[2022-10-08] MEDS ORDERED: ATORVASTATIN 20 MG TABLET PO SCH (09:00)
[2022-10-08] MEDS ORDERED: NEPHROVITE, (FOLIC ACID/VITAMIN B COMP W-C 1 TAB) PO SCH (09:00)
[2022-10-08 11:24] VITALS: BP_SYST 149
[2022-10-08 15:27] VITALS: BP_SYST 148
[2022-10-08] MEDS ORDERED: HEPARIN SODIUM,PORCINE 5,000 UNITS/ML VIAL MC ONE (15:30)
[2022-10-08 15:39] LABS: BASOPHILS # (AUTO) 0.1 K/uL (0.0-0.2); EOSINOPHILS # (AUTO) 0.2 K/uL (0.0-0.4); EOSINOPHILS % (AUTO) 2.2 % (0.0-4.0); HEMATOCRIT 28.8 % (36-54); HEMOGLOBIN 9.5 g/dL (14.0-18.0); LYMPHOCYTES # (AUTO) 0.8 K/uL (1.0-5.5); MEAN CORPUSCULAR HEMOGLOBIN 30 pg (27-31); MEAN CORPUSCULAR HGB CONC 33 % (32-36); MEAN CORPUSCULAR VOLUME 91 fL (79.0-98.0); MONOCYTES # (AUTO) 1.3 K/uL (0.0-1.0); MONOCYTES % (AUTO) 12.2 % (1.7-9.3); NEUTROPHILS # (AUTO) 8.1 K/uL (1.8-7.7); NEUTROPHILS % (AUTO) 76.6 % (40.0-70.0); PLATELET COUNT (AUTO) 130 K/uL (130-430); RED BLOOD CELL COUNT(AUTO) 3.18 MIL/uL (4.2-6.2); RED CELL DISTRIBUTION WIDTH 17.2 % (9.0-15.0); WHITE BLOOD COUNT (AUTO) 10.5 K/uL (4.8-10.8)
[2022-10-08 15:51] LABS: ALBUMIN 3.1 g/dL (3.4-4.8); CALCIUM 7.3 mg/dL (8.4-11.0); TOTAL BILIRUBIN 0.6 mg/dL (0.0-1.0)
[2022-10-08 15:55] LABS: CREATININE 12.63 mg/dL (0.55-1.30)
[2022-10-08 18:40] VITALS: BP_SYST 149
[2022-10-08] MEDS: METOPROLOL SUCCINATE 50 MG TAB.SR.24H (TOPROL XL) PO SCH (18:42)
[2022-10-08 20:58] VITALS: BP_SYST 154
== END 2022-10-08 21:00 | DRG 640 ==
LOC: SED 11:11 → STU 14:59 → SMU 10-08 12:33
PROVIDERS: ADMIT Family Medicine; ATTEND Family Medicine
PROC: 5A1D70Z Performance of Urinary Filtration, Intermittent, Less than 6 Hours Per Day (ICD-10-PCS; principal; 2022-10-05)
PROC: 5A1D70Z Performance of Urinary Filtration, Intermittent, Less than 6 Hours Per Day (ICD-10-PCS; 2022-10-06)
PROC: 5A1D70Z Performance of Urinary Filtration, Intermittent, Less than 6 Hours Per Day (ICD-10-PCS; 2022-10-08)
DX: E87.5 Hyperkalemia (principal); J96.01 Acute respiratory failure with hypoxia; N18.6 End stage renal disease; I13.2 Hypertensive heart and chronic kidney disease with heart failure and with stage 5 chronic kidney disease, or end stage renal disease; I16.9 Hypertensive crisis, unspecified; E87.70 Fluid overload, unspecified; E11.51 Type 2 diabetes mellitus with diabetic peripheral angiopathy without gangrene; G89.4 Chronic pain syndrome; D64.9 Anemia, unspecified; F41.9 Anxiety disorder, unspecified; I25.10 Atherosclerotic heart disease of native coronary artery without angina pectoris; Z20.822 Contact with and (suspected) exposure to COVID-19; I50.9 Heart failure, unspecified; E11.22 Type 2 diabetes mellitus with diabetic chronic kidney disease; D63.1 Anemia in chronic kidney disease; Z91.199 Patient's noncompliance with other medical treatment and regimen due to unspecified reason; Z99.2 Dependence on renal dialysis; Z79.899 Other long term (current) drug therapy
CPT/HCPCS: 36415; 71045; 80053; 83880; 84484; 85025; 85379; 87081; 93005; 96374; 96375; 99285; G0378; J0360; J1644; J1815; J1885; J2270; J2405

== ENCOUNTER 2022-12-29 06:04 | Inpatient (IN) | payer OTHER, MEDICAID ==
[~2022-12-29] VITALS: Ht 188 cm; Wt 86.2 kg
[2022-12-29 06:04] VITALS: BP_SYST 149; PULSE 72; RESP 20; TEMP 98.5; O2SAT 97
[~2022-12-29 06:04] MED LIST changes: -CEFE1PIG3 IV; -CLONIDINE HCL PO; -EMOL396C TP; -EPOE200011 SUBCUT; -ERGO1250 PO; -FOLI-43 PO; -GABA-533 PO; -HEPA500015 SUBCUT; -INSU100V9 SQ; -LOSA50TA3 PO; -SSNOVOLOG SUBCUT
--- NOTE | 2022-12-29 06:04 | NUR ---
Triaged and placed patient in ER bed 2 for evaluation. Report given to TODD RODRÍGUEZ for continuity of care. VSS, no acute respiratory distress noted at this time. Instructed to notify ED staff for any changes in condition or worsening of symptoms. Patient verbalized understanding.
--- NOTE | 2022-12-29 06:17 | NUR ---
RECEIVED FOR CARE AFTER REPORT. ASSESSMENT COMPLETED. AWAITING ADDITIONAL EVAL AND ORDERS.
--- NOTE | 2022-12-29 06:22 | NUR ---
ER Dr. Garcia at bedside examining patient.
[2022-12-29] MEDS ORDERED: KETAMINE HCL IN 0.9 % NACL 20 MG in NS 100 ML IV ONE ×2 (06:30)
[2022-12-29] MEDS ORDERED: MORPHINE 4 MG INJ. 4 MG/ML VIAL IVP ONE (06:30)
[2022-12-29] MEDS ORDERED: KETAMINE HCL IN 0.9 % NACL 50 MG/5 ML SYRINGE ONE (06:33)
[2022-12-29] MEDS ORDERED: CLON1TAB12 PO (07:04)
[2022-12-29] MEDS ORDERED: LOSA50TA3 PO (07:04)
[2022-12-29] MEDS ORDERED: TRAZ-251 PO (07:04)
[2022-12-29 07:20] LABS: EOSINOPHILS # (AUTO) 0.3 K/uL (0.0-0.4); EOSINOPHILS % (AUTO) 2.6 % (0.0-4.0); HEMATOCRIT 24.9 % (36-54); HEMOGLOBIN 8.2 g/dL (14.0-18.0); LYMPHOCYTES % (AUTO) 9.1 % (20.5-51.5); MEAN CORPUSCULAR HEMOGLOBIN 29 pg (27-31); MEAN CORPUSCULAR HGB CONC 33 % (32-36); MEAN CORPUSCULAR VOLUME 89 fL (79.0-98.0); MONOCYTES # (AUTO) 1.1 K/uL (0.0-1.0); MONOCYTES % (AUTO) 10.1 % (1.7-9.3); PLATELET COUNT (AUTO) 218 K/uL (130-430); RED BLOOD CELL COUNT(AUTO) 2.81 MIL/uL (4.2-6.2); RED CELL DISTRIBUTION WIDTH 18.9 % (9.0-15.0)
[2022-12-29 07:28] LABS: ALANINE AMINOTRANSFERASE 20 U/L (12-78); ALBUMIN 2.7 g/dL (3.4-4.8); ANION GAP 16 (5-15); ASPARTATE AMINOTRANSFERASE 15 U/L (10-37); BASOPHILS # (AUTO) 0.1 K/uL (0.0-0.2); BASOPHILS % (AUTO) 0.6 % (0.0-2.0); CALCIUM 7.6 mg/dL (8.4-11.0); CHLORIDE 98 mmol/L (98-107); GFR AFRICAN AMERICAN 6 mL/min (>90); GLUCOSE 89 mg/dL (70-99); NEUTROPHILS # (AUTO) 8.5 K/uL (1.8-7.7); NEUTROPHILS % (AUTO) 77.6 % (40.0-70.0); TOTAL BILIRUBIN 0.9 mg/dL (0.0-1.0); UREA NITROGEN, BLOOD 67 mg/dL (8-21)
--- NOTE | 2022-12-29 07:30 | NUR ---
RECEIVED PT FROM MARCOS BROOKS. ASSUMED CARE. PT IS AAOX4. RESP SHALLOW, LUNG SOUNDS DIMINISHED, ON 02 N/C AT 2LPM. TELEMONITOR SHOWS SINUS TACH 110S. ABDOMEN SOFT, NONTENDER, NONDISTENDED, NONTENDER. PT DENIES N/V/D/C. PT HAS BLE 1+ EDEMA AND DRYNESS. WOUND TO RIGHT FOOT COVERED WITH CDI DRESSING, AND HEEL BOOT IN PLACE. BLE ELEVATED ON PILLOW. PT HAS LEFT UPPER CHEST JIM CATH, COVERED WITH CDI DRESSING. PT HAS LFA 20G IV CATH IN PLACED. FLUSHED AND PATENT. DISTAL PULSES NORMAL, SKIN WARM. DENIES PAIN AT THIS TIME.
[2022-12-29 07:32] LABS: CREATININE 11.99 mg/dL (0.55-1.30)
--- NOTE | 2022-12-29 09:04 | NUR ---
Admit bed requested Patient will be admitted to care of Dr. MONSALVE+. Admitted to TELEMETRY unit. Diagnosis PLEURAL EFFUSION, RENAL FAILURE Inpatient (Yes or No) YES Observation (Yes or No) NO Orientation concerns or request close to nursing station (Yes or No) NO Covid Status PENDING On vent or bipap NO Isolation requirements PENDING Needs a sitter NO From Home (Yes or if No enter name of facility) YES Requires Dialysis (Yes or No) YES T/TH/SAT Med Rec Completed (Yes of No) YES
[2022-12-29 09:36] VITALS: BP_SYST 148; PULSE 104; RESP 18; TEMP 97.9; O2SAT 98
--- NOTE | 2022-12-29 09:36 | NUR ---
Admission Note Received patient from ER with diagnosis of Pleural Effusion,Renal Failure.Put on o2 2l/nc,good saturation.No sob noted.On telemetry as ordered. Initial Plan of Care discussed-patient verbalized understanding.Left chest with perma catheter for HD.With left forearm iv to saline lock. Oriented to room, call light, pain management and safety.
--- NOTE | 2022-12-29 09:36 | NUR ---
DR AGUAYO MADE AWARE HE IS CONSULT FOR THIS PT. HE STATED HE WILL MOST LIKELY NOT SEE HIM UNTIL TOMORROW. HE ORDERED A RIGHT SIDE THORACENTESIS. ORDER CARRIED OUT.
--- NOTE | 2022-12-29 10:24 | NUR ---
CONSULTATION PAGED REASON FOR CONSULTATION: PLEURAL EFFUSION, RENAL FAILURE WAS CONSULT CALLED? Y PERSON WHO WAS NOTIFIED: MORGAN CONSULTING PHYSICIAN: JADE CALLES (IWONA DENISE LEAD PRESS OPERATOR) SECURITY AND PRIVACY CONSULTANT SPECIALTY: PULMONARY SECURITY AND PRIVACY CONSULTANT PHONE NUMBER: [phone] REQUESTING PHYSICIAN: KAELYN ELIAS
--- NOTE | 2022-12-29 10:27 | NUR ---
CONSULTATION PAGED REASON FOR CONSULTATION: PLEURAL EFFUSION, RENAL FAILURE WAS CONSULT CALLED? Y PERSON WHO WAS NOTIFIED: ROSALBA CONSULTING PHYSICIAN: AMBIKA PURVIS HANDICRAFT OR HOBBY SHOP MANAGER SPECIALTY: NEPHRO HANDICRAFT OR HOBBY SHOP MANAGER PHONE NUMBER: [phone] REQUESTING PHYSICIAN: KAELYN ELIAS
--- NOTE | 2022-12-29 10:56 | NUR ---
Patient will be admitted to care of DR. MONSALVE. Admitted to TELEMETRY unit. Will go to room 124A REPORT GIVEN TO MARCOS MORLEY. Belongings list completed. Complete and up to date summary report printed. SBAR report to be given at bedside with opportunity for questions.
[2022-12-29] MEDS ORDERED: amLODIPine BESYLATE 10 MG TABLET PO ONE (11:00)
[2022-12-29] MEDS ORDERED: traZODone HCL 50 MG TABLET (DESYREL) PO PRN (11:00)
[2022-12-29] MEDS ORDERED: ACETAMINOPHEN 325 MG TABLET PO PRN ×2 (11:00→11:15)
[2022-12-29] MEDS ORDERED: clonazePAM 0.5 MG TABLET PO PRN (11:00)
[2022-12-29] MEDS ORDERED: HYDROcodone/ACETAMIN 5-325 MG TAB (NORCO/ VICODIN) PO PRN (11:00)
[2022-12-29] MEDS ORDERED: HYDROcodone/ACETAMIN 10-325 MG TAB PO PRN (11:00)
[2022-12-29] MEDS ORDERED: NALOXONE HCL 0.4 MG/ML AMP (NARCAN) IVP PRN ×2 (11:00)
[2022-12-29] MEDS ORDERED: SODIUM POLYSTYRENE SULFONATE 15 GM/60 ML UDBTL PO ONE (11:00)
[2022-12-29] MEDS ORDERED: ONDANSETRON HCL 4 MG/2 ML VIAL IVP PRN (11:00)
[2022-12-29] MEDS ORDERED: NEPHROVITE, (FOLIC ACID/VITAMIN B COMP W-C 1 TAB) PO ONE (11:15)
[2022-12-29] MEDS ORDERED: FUROSEMIDE 40 MG TABLET PO ONE (11:15)
[2022-12-29] MEDS ORDERED: PANTOPRAZOLE SODIUM 40 MG TAB PO ONE (11:30)
[2022-12-29] MEDS: hydrALAZINE HCL 25 MG TABLET PO SCH ×2 (12:13→18:40)
[2022-12-29] MEDS: NORMAL SALINE 5 ML DISP.SYRIN IVF SCH ×2 (12:15→21:28)
[2022-12-29 12:39] LABS: INR 1.2 (0.80-1.20); PROTHROMBIN TIME 12.7 SECS (9.5-12.5)
[2022-12-29] MEDS: cefTRIAXone 1 GM IVPB PREMIX 50 ML IV SCH (12:43)
[2022-12-29] MEDS: SEVELAMER CARBONATE 800 MG TABLET PO SCH ×2 (15:06→21:26)
[2022-12-29 18:28] VITALS: BP_SYST 149; PULSE 109; RESP 16; TEMP 96.9; O2SAT 96
--- NOTE | 2022-12-29 18:49 | NUR ---
PAGED: PAGED DR Balatzar MONSALVE FOR PAIN MEDICATIONS.
--- NOTE | 2022-12-29 19:22 | NUR ---
END OF SHIFT: REPORT GIVEN TO NIGHT NURSE QUE,PATIENT C/O PAIN AND WAITING FOR MD TO CALL BACK FOR A DIFFERENT PAIN MEDICATIONS. CALL LIGHT WITH IN REACH. BED LOCKED AT LOWEST POSITION. NO ACUTE DISTRESS.HD TONIGHT,BED CONTROL KANNAN CALLED THE DIALYSIS [facility] TO DO IT TONIGHT.
--- NOTE | 2022-12-29 19:28 | NUR ---
CALLED BACK: SPOKE WITH DR Baltazar MONSALVE WITH ORDERS TO GIVE PERCOCET 5/325MG PO Q 4HOURS FOR BREAKTHROUGH PAIN.
[2022-12-29] MEDS: OXYCODONE/ACETAMINOPHEN 5-325 TABLET PO PRN (19:51)
[2022-12-29 20:00] VITALS: BP_SYST 145; PULSE 109; RESP 18; TEMP 98; O2SAT 98
--- NOTE | 2022-12-29 20:00 | NUR ---
Hemodialysis started by HD nurse , vitals sign monitored.
[2022-12-29] MEDS ORDERED: HEPARIN SODIUM, PORCINE 10,000 UNITS/ 10 ML VIAL MC ONE (20:45)
[2022-12-29] MEDS: LOSARTAN POTASSIUM 50 MG TABLET (COZAAR) PO SCH (21:00)
[2022-12-29] MEDS ORDERED: IRBESARTAN 150 MG TABLET (AVAPRO) PO SCH (21:00)
[2022-12-29] MEDS: ATORVASTATIN 20 MG TABLET PO SCH (21:27)
[2022-12-29] MEDS: METOPROLOL TARTRATE 25 MG TABLET PO SCH (21:27)
--- NOTE | 2022-12-29 23:00 | NUR ---
Hemodialysis completed with 3 liters output , vital sign stable due meds given , will monitor
[2022-12-29 23:10] VITALS: BP_SYST 139; PULSE 104; RESP 18; TEMP 97.8; O2SAT 96
[2022-12-30] VITALS (7 sets, daily range): BP systolic 115–135; PULSE 78–98; RESP 16–20; TEMP 97.2–99; O2SAT 94–100
--- NOTE | 2022-12-30 00:30 | NUR ---
Rechecked blood pressure WNL due meds given.
[2022-12-30] MEDS: hydrALAZINE HCL 25 MG TABLET PO SCH ×5 (00:32→23:33)
[2022-12-30 05:04] LABS: BASOPHILS # (AUTO) 0.1 K/uL (0.0-0.2); EOSINOPHILS # (AUTO) 0.5 K/uL (0.0-0.4); EOSINOPHILS % (AUTO) 4.5 % (0.0-4.0); HEMATOCRIT 25.1 % (36-54); HEMOGLOBIN 8.2 g/dL (14.0-18.0); LYMPHOCYTES # (AUTO) 0.7 K/uL (1.0-5.5); LYMPHOCYTES % (AUTO) 6.2 % (20.5-51.5); MEAN CORPUSCULAR HEMOGLOBIN 29 pg (27-31); MEAN CORPUSCULAR HGB CONC 33 % (32-36); MEAN CORPUSCULAR VOLUME 89 fL (79.0-98.0); MONOCYTES # (AUTO) 1.2 K/uL (0.0-1.0); MONOCYTES % (AUTO) 10.8 % (1.7-9.3); NEUTROPHILS # (AUTO) 8.8 K/uL (1.8-7.7); NEUTROPHILS % (AUTO) 77.5 % (40.0-70.0); PLATELET COUNT (AUTO) 227 K/uL (130-430); RED BLOOD CELL COUNT(AUTO) 2.82 MIL/uL (4.2-6.2); RED CELL DISTRIBUTION WIDTH 18.9 % (9.0-15.0); WHITE BLOOD COUNT (AUTO) 11.4 K/uL (4.8-10.8)
[2022-12-30 05:32] LABS: ALBUMIN 2.6 g/dL (3.4-4.8); C-REACTIVE PROTEIN QUANT 10.3 mg/dL (0-0.5); CALCIUM 7.6 mg/dL (8.4-11.0); TOTAL BILIRUBIN 0.8 mg/dL (0.0-1.0)
[2022-12-30 05:35] LABS: CREATININE 9.46 mg/dL (0.55-1.30)
--- NOTE | 2022-12-30 05:50 | NUR ---
Critical lab Called Dr. Chacon (Dr. Hicks chief station engineer) for critical lab, waiting for to call back.
--- NOTE | 2022-12-30 06:00 | NUR ---
Slept well no shortness of breath on room air 98% , blood pressure controlled
[2022-12-30] MEDS: NORMAL SALINE 5 ML DISP.SYRIN IVF SCH ×3 (06:05→21:35)
[2022-12-30 06:56] LABS: ERYTHROCYTE SEDIMENTATION RATE 56 MM/HR (0-15)
--- NOTE | 2022-12-30 07:30 | NUR ---
Initial note: report received from Lucy. Patient is awake alert x4. Call light in reach. Bed in the lowest position. Ambulated to the bathroom. Assessment is done and vital checked. No pain or discomfort at this time. Will continue patient care.
[2022-12-30] MEDS: PANTOPRAZOLE SODIUM 40 MG TAB PO SCH (09:22)
[2022-12-30] MEDS: NEPHROVITE, (FOLIC ACID/VITAMIN B COMP W-C 1 TAB) PO SCH (09:22)
[2022-12-30] MEDS: FUROSEMIDE 40 MG TABLET PO SCH (09:22)
[2022-12-30] MEDS: METOPROLOL TARTRATE 25 MG TABLET PO SCH ×2 (09:23→21:21)
[2022-12-30] MEDS: SEVELAMER CARBONATE 800 MG TABLET PO SCH ×3 (09:23→21:21)
[2022-12-30] MEDS: amLODIPine BESYLATE 10 MG TABLET PO SCH (09:24)
--- NOTE | 2022-12-30 09:43 | NUR ---
Found patient's home meds at the bedside. Recorded and sent to pharmacy. patient is aware and signed. Reminding sticker from pharmacist was put on the cover of the chart.
[2022-12-30] MEDS: cefTRIAXone 1 GM IVPB PREMIX 50 ML IV SCH (10:33)
--- NOTE | 2022-12-30 13:05 | NUR ---
PULMO MD DR Debby AGUAYO WAS CALLED, TO CLARIFY THE ORDER FOR THORACENTESIS. SPOKE TO ERICA.
--- NOTE | 2022-12-30 17:37 | NUR ---
Note: patient complained pain on RLE and Dun[place] and precocet both do not work for him. Called and spoke to Dr. Debby Agustin and Dr. Debby Agustin said NO more other pain meds for him except for those pain pills. Patient made aware.
[2022-12-30] MEDS: OXYCODONE/ACETAMINOPHEN 5-325 TABLET PO PRN (17:44)
--- NOTE | 2022-12-30 20:06 | NUR ---
Closing Note: Reported to Loree. Patient is awake alert x4. Resting in bed. Bed in the lowest position and side rails x2 up. Endorse to continue patient care.
--- NOTE | 2022-12-30 20:30 | NUR ---
INITIAL NOTES; pt. awake, c/o pain but he does not want any pain med since he said it does not help. schedule for hemodialysis tomorrow. IV lock on left forearm. O2 @ 2 liters per nasal cannula, on high fowlers position. rt. foot amputee, wound open to air, bothe legs swollen and discolored. call light within reach. on cariac monitor and shows sinus rhythm.
[2022-12-30] MEDS ORDERED: COMMUNICATION ORDER XX ONE (20:45)
[2022-12-30] MEDS: ATORVASTATIN 20 MG TABLET PO SCH (21:19)
[2022-12-30] MEDS: LOSARTAN POTASSIUM 50 MG TABLET (COZAAR) PO SCH (21:20)
[2022-12-30] MEDS ORDERED: VANCOMYCIN HCL 1,000 MG in NS 250 ML IV ONE (22:00)
[2022-12-31] VITALS (7 sets, daily range): BP systolic 127–153; PULSE 80–93; RESP 18–20; TEMP 97.8–99; O2SAT 94–99
--- NOTE | 2022-12-31 00:01 | NUR ---
NOTES: pt. been dozing on and off. IV antibiotic infused. due medication given.
--- NOTE | 2022-12-31 00:40 | NUR ---
NOTES: condition observed.
--- NOTE | 2022-12-31 04:00 | NUR ---
NOTES: pt. sleeping. no further complaints.
[2022-12-31 05:18] LABS: BASOPHILS % (AUTO) 0.3 % (0.0-2.0); EOSINOPHILS # (AUTO) 0.6 K/uL (0.0-0.4); EOSINOPHILS % (AUTO) 6.9 % (0.0-4.0); HEMATOCRIT 23.8 % (36-54); LYMPHOCYTES # (AUTO) 0.7 K/uL (1.0-5.5); MEAN CORPUSCULAR HEMOGLOBIN 30 pg (27-31); MEAN CORPUSCULAR HGB CONC 34 % (32-36); MEAN CORPUSCULAR VOLUME 88 fL (79.0-98.0); MONOCYTES # (AUTO) 1.1 K/uL (0.0-1.0); MONOCYTES % (AUTO) 12.2 % (1.7-9.3); NEUTROPHILS # (AUTO) 6.4 K/uL (1.8-7.7); NEUTROPHILS % (AUTO) 72.6 % (40.0-70.0); PLATELET COUNT (AUTO) 174 K/uL (130-430); RED BLOOD CELL COUNT(AUTO) 2.71 MIL/uL (4.2-6.2); RED CELL DISTRIBUTION WIDTH 18.5 % (9.0-15.0); WHITE BLOOD COUNT (AUTO) 8.8 K/uL (4.8-10.8)
[2022-12-31 06:03] LABS: ALBUMIN 2.5 g/dL (3.4-4.8); CALCIUM 7.4 mg/dL (8.4-11.0); PHOSPHORUS 10.6 mg/dL (2.7-4.5); TOTAL BILIRUBIN 0.5 mg/dL (0.0-1.0)
[2022-12-31 06:13] LABS: CREATININE 10.91 mg/dL (0.55-1.30)
--- NOTE | 2022-12-31 06:45 | NUR ---
CLOSING NOTES; PT. ALREADY AWAKE, DANGLING AT BEDSIDE. DUE MED GIVEN.FOR FURTHER ASSISTANCE. WILL ENDORSE TO INCOMING SHIFT
[2022-12-31] MEDS: NORMAL SALINE 5 ML DISP.SYRIN IVF SCH ×3 (06:49→22:16)
[2022-12-31] MEDS: hydrALAZINE HCL 25 MG TABLET PO SCH ×3 (06:56→17:58)
--- NOTE | 2022-12-31 09:30 | NUR ---
Right foot plantar wound cleansed with 0.9% Normal Saline and gauze 4x4 dressing and kerlix wrap applied. Right foot with all 5 metatarsals amputated, and partial tarsal amputation, left foot with 1st, 2nd, and 5th metatarsals amputated.
[2022-12-31] MEDS: cefTRIAXone 1 GM IVPB PREMIX 50 ML IV SCH (10:14)
[2022-12-31] MEDS: PANTOPRAZOLE SODIUM 40 MG TAB PO SCH (10:16)
[2022-12-31] MEDS: NEPHROVITE, (FOLIC ACID/VITAMIN B COMP W-C 1 TAB) PO SCH (10:16)
[2022-12-31] MEDS: FUROSEMIDE 40 MG TABLET PO SCH (10:16)
[2022-12-31] MEDS: amLODIPine BESYLATE 10 MG TABLET PO SCH (10:17)
[2022-12-31] MEDS: METOPROLOL TARTRATE 25 MG TABLET PO SCH ×2 (10:18→22:15)
[2022-12-31] MEDS: SEVELAMER CARBONATE 800 MG TABLET PO SCH ×3 (10:21→22:14)
[2022-12-31] MEDS: OXYCODONE/ACETAMINOPHEN 5-325 TABLET PO PRN (10:22)
[2022-12-31] MEDS ORDERED: MORPHINE 2 MG/ML INJ. SYRINGE IVP ONE (10:45)
[2022-12-31] MEDS ORDERED: NALOXONE HCL 0.4 MG/ML AMP (NARCAN) IVP PRN (10:45)
[2022-12-31] MEDS ORDERED: AMOX-423 PO (10:51)
[2022-12-31] MEDS ORDERED: PERC10 PO (10:51)
[2022-12-31] MEDS ORDERED: HYDR-3927 PO (10:51)
--- NOTE | 2022-12-31 15:00 | NUR ---
Patient receiving Hemodialysis; Vital signs stable, and patient tolerating well.
[2022-12-31] MEDS ORDERED: HEPARIN SODIUM,PORCINE 5,000 UNITS/ML VIAL MC ONE (16:30)
--- NOTE | 2022-12-31 16:30 | NUR ---
Hemodialysis complete with 3000 ml. fluid output removed via Left chest permacath.
--- NOTE | 2022-12-31 16:49 | NUR ---
CALLED DR CUNHA'S OFFICE FOR A DISCHARGE CLEARANCE AT [phone] SPOKE WITH AIYANA TO PUT IN A REQUEST FOR A CALL BACK. ALSO CALLED DR PACHECO'S OFFICER FOR A DISCHARGE CLEARANCE HE DID NOT ANSWER OFFICE IS CLOSED.
--- NOTE | 2022-12-31 16:51 | NUR ---
DEVYN AGUAYO WAS CALLED, RE: TO GET CLEARANCE FOR DISCHARGE. SPOKE TO NELSON.
[2022-12-31] MEDS ORDERED: EPOETIN ALFA 4,000 UNITS/ML VIAL SUBCUT SCH (17:00)
--- NOTE | 2022-12-31 17:45 | NUR ---
Called extension [phone] for Case Management Department and voicemail left regarding order for discharge planning for home health wound care.
--- NOTE | 2022-12-31 18:06 | NUR ---
Voicemail message left at extension [phone] regarding Wound Care Consult
--- NOTE | 2022-12-31 19:50 | NUR ---
OPENING NOTE PT SITTING IN BED AND EYES OPEN. BREATHING EVEN AND NONLABORED VIA NASAL CANNULAR 2L. PT REPORTED FEET PAIN /. REFUSED PAIN MEDICATION. WAITING FOR CLEARANCE FOR DC. SAFETY CHECKS IN PLACE. CALL LIGHT IN REACH. CONTINUE TO MONITOR
--- NOTE | 2022-12-31 20:40 | NUR ---
DC PLAN DISCUSSED WITH CSM JOSUE REGARDING PT'S DC PLAN. ORDERED DME, PT, AND HOME HEALTH FOR WOUND FOR DC. ACCORDING TO PT, HE HAS HOME HEALTH, "[facility]" FOR WOUND CARE, HE DOESN'T NEED TO USE ASSIST DEVICE FOR WALK, JUST NEEDS A BOOT FOR RIGHT FOOT. CSM SAID HE CAN GO HOME IF THIS RESIDENT ENGINEER SEES HE WALKS FINE WITH A BOOT. CSM CAN ARRANGE FOR PT AFTER DC. IF PT NEEDS ANY DEVICE, SHE CAN SEND IT TO PT'S HOME. THIS RESIDENT ENGINEER ASSESSED PT'S GAIT WITH A BOOT. HE WALKED STABLE AND FINE. WAITING FOR DR. CUNHA RETURN CALL FOR NEPHROLOGY CLEARANCE FOR DC.
--- NOTE | 2022-12-31 20:51 | NUR ---
Voicemail message left at [phone] Dr. Chacon regarding DC clearance.
--- NOTE | 2022-12-31 21:40 | NUR ---
PAGED DR CUNHA AT [phone]
--- NOTE | 2022-12-31 21:57 | NUR ---
CLEARANCE FROM ACCOUNTING DIRECTOR RECEIVED DR. CUNHA'S RETURN CALL. REPORTED PT'S CURRENT CONDITION AND SAID HE CAN BE DC NOW.
--- NOTE | 2022-12-31 22:00 | NUR ---
DELAYED DC INFORMED PT THAT HE CAN GO HOME. PT SAID HIS DAUGHTER RECEIVED EMERGENCY CALL FROM HER WORK SO SHE CAN'T PICK HIM UP. ASKED IF THERE IS ANOTHER PERSON CAN PICK HIM UP BUT PT SAID THEY HAVE ONE CAR SO NO ONE CAN COME TO PICK HIM UP. PAGED DR. MONSALVE TO REPORT THIS ISSUE.
[2022-12-31] MEDS: LOSARTAN POTASSIUM 50 MG TABLET (COZAAR) PO SCH (22:14)
[2022-12-31] MEDS: ATORVASTATIN 20 MG TABLET PO SCH (22:14)
--- NOTE | 2022-12-31 22:42 | NUR ---
RECEIVED RETURN CALL FROM DR. MONSALVE. NOTIFIED DC DELAYED BECAUSE HE DOESN'T HAVE A RIDE. HIS DAUGHTER RECEIVED EMERGENCY CALL FROM HER WORK AND TOOK HIS CAR. THEY HAVE ONLY ONE CAR. AWARE ABOUT THIS AND OK WITH DC ON 01/01/23 MORNING.
[2023-01-01 00:17] VITALS: BP_SYST 130; PULSE 89; RESP 16; TEMP 98.4; O2SAT 97
--- NOTE | 2023-01-01 00:49 | NUR ---
OFFERED UBER [facility] OFFERED UBER FOR RIDE. PT SAID THERE IS NO ONE AT HOME NOW. PT REFUSED THE OFFER.
[2023-01-01] MEDS: hydrALAZINE HCL 25 MG TABLET PO SCH ×3 (02:14→12:05)
--- NOTE | 2023-01-01 02:30 | NUR ---
ROUNDING NOTE PT LYING IN BED AND EYES CLOSED. BREATHING EVEN AND NONLABORED. SAFETY CHECKS IN PLACE. CALL LIGHT IN REACH. CONTINUE TO MONITOR
[2023-01-01 05:06] LABS: BASOPHILS # (AUTO) 0.1 K/uL (0.0-0.2); BASOPHILS % (AUTO) 1.4 % (0.0-2.0); EOSINOPHILS # (AUTO) 0.3 K/uL (0.0-0.4); EOSINOPHILS % (AUTO) 5.3 % (0.0-4.0); HEMATOCRIT 24.6 % (36-54); HEMOGLOBIN 8.1 g/dL (14.0-18.0); LYMPHOCYTES # (AUTO) 0.5 K/uL (1.0-5.5); LYMPHOCYTES % (AUTO) 8.4 % (20.5-51.5); MEAN CORPUSCULAR HEMOGLOBIN 29 pg (27-31); MEAN CORPUSCULAR HGB CONC 33 % (32-36); MEAN CORPUSCULAR VOLUME 89 fL (79.0-98.0); MONOCYTES # (AUTO) 1.2 K/uL (0.0-1.0); MONOCYTES % (AUTO) 18.8 % (1.7-9.3); NEUTROPHILS # (AUTO) 4.1 K/uL (1.8-7.7); NEUTROPHILS % (AUTO) 66.1 % (40.0-70.0); PLATELET COUNT (AUTO) 188 K/uL (130-430); RED BLOOD CELL COUNT(AUTO) 2.77 MIL/uL (4.2-6.2); WHITE BLOOD COUNT (AUTO) 6.2 K/uL (4.8-10.8)
[2023-01-01 06:02] LABS: ALBUMIN 2.3 g/dL (3.4-4.8); C-REACTIVE PROTEIN QUANT 5.8 mg/dL (0-0.5); TOTAL BILIRUBIN 0.4 mg/dL (0.0-1.0)
[2023-01-01 06:04] LABS: CREATININE 9.96 mg/dL (0.55-1.30)
--- NOTE | 2023-01-01 06:07 | NUR ---
CRITICAL LAB RECEIVED CRITICAL LAB CREATININE 9.96 @ 0605 FROM ED
--- NOTE | 2023-01-01 06:15 | NUR ---
PT'S CALLED AND SAID SHE DOESN'T WANT PT TO BE BACK HOME. ACCORDING TO HIS , PT LIED TO BECAUSE HE WANTS TO COME BACK HOME. HE HAS PROBLEMS ON WALKING AND BREATHING AFTER DC. THIS PRODUCTION QUALITY ANALYST SAID TO PT'S THAT PULMONARY AND NEHPROLOGY DOCTORS ORDERED OK TO BE DC AND I SAW PT WALKED FINE WITHOUT ANY ASSIST DEVICE. PT TOLD ME HE HAS HOME HEALTH SERVICE "[facility]" FOR WOUND. PT'S STILL WANTS TO SEND PT TO ANOTHER FACILITY FOR FURTHER CARE. ANSWERED PT'S I WILL ASK TO CHARGE NURSE AND DOCTOR. NAME IS UBALDO [phone]
--- NOTE | 2023-01-01 06:24 | NUR ---
Attending MD Dr Cooper was called RE; CRITICAL LAB. SPOKE TO SOHAN.
--- NOTE | 2023-01-01 06:27 | NUR ---
CRITICAL LAB REPORT NOTIFIED DR. GUAJARDO PT'S CREATININE 9.96. AWARE ABOUT THAT AND SAID SEND PT TO [facility] FOR NEXT DIALYSIS SCHEDULE.
--- NOTE | 2023-01-01 07:08 | NUR ---
TOLD PT REGARDING HIS CONCERNS. ASKED PT IF HE HAS PROBLEMS ON WALKING AND BREATHING. PT SAID HE DOESN'T HAVE ANY PROBLEM TO WALK BUT BREATHING. REMOVED NASAL CANNULAR FOR ASSESS IF PT IS STABLE WITHOUT OXYGEN THERAPY @ 0655. WILL CHECK O2 SAT AFTER 20 MINS.
[2023-01-01 07:33] LABS: ERYTHROCYTE SEDIMENTATION RATE 55 MM/HR (0-15)
--- NOTE | 2023-01-01 07:33 | NUR ---
CLOSING NOTE PT SITTING IN BED AND EYES OPEN. BREATHING EVEN AND NONLABORED ON RA. NO S/S OF ACUTE DISTRESS. SAFETY CHECKS IN PLACE. CALL LIGHT IN REACH. INFORMED DAY SHIFT NURSE THAT NEEDS TO MONITOR PT'S O2 SAT. ENDORSED TO DAY SHIFT NURSE
[2023-01-01 08:00] VITALS: O2SAT 95
--- NOTE | 2023-01-01 08:40 | NUR ---
called and asked for an update of the patient. Instructed that patient is going home today. Updated that patient's stable to go home. Patient's alert and oriented, able to make needs known. Breathing is regular and unlabored, no shortness of breath. On RA sating 94-97% , no s/s of respiratory distress and no c/o pain or discomfort. stated that she does not feel that patient's safe at home. further said that patient needs to go for a rehab to get stronger. Instructed that patient wanted to go home and he said that he can ambulate steady using his boot, but disagreed and would talk to the patient to go to rehab.
[2023-01-01 09:07] VITALS: BP_SYST 111; PULSE 85; RESP 17; TEMP 97.2; O2SAT 97
[2023-01-01] MEDS: NEPHROVITE, (FOLIC ACID/VITAMIN B COMP W-C 1 TAB) PO SCH (09:56)
[2023-01-01] MEDS: METOPROLOL TARTRATE 25 MG TABLET PO SCH (09:57)
[2023-01-01] MEDS: PANTOPRAZOLE SODIUM 40 MG TAB PO SCH (09:58)
[2023-01-01] MEDS: SEVELAMER CARBONATE 800 MG TABLET PO SCH (09:58)
[2023-01-01] MEDS: FUROSEMIDE 40 MG TABLET PO SCH (09:58)
[2023-01-01] MEDS: amLODIPine BESYLATE 10 MG TABLET PO SCH (09:59)
[2023-01-01] MEDS: NORMAL SALINE 5 ML DISP.SYRIN IVF SCH (10:00)
[2023-01-01 11:20] VITALS: BP_SYST 125; PULSE 85; RESP 18; TEMP 98.4; O2SAT 95
--- NOTE | 2023-01-01 11:43 | NUR ---
FAXED THE PACKET TO [facility] WAITING TO HEAR BACK FROM [facility] WITH ROOM INFO AND ALSO TRANSPORTAION. AND PATIENT HAVE BEEN TOLD
--- NOTE | 2023-01-01 12:01 | NUR ---
CM: Met with pt to inform that Md ok for him to be dc home with home health f/u. He disagreed and requested going to snf to continue rehabilitation, wound care. He c/o that he is still weak and wants to get stronger before going home. I also spoke with his Jennyfer who refused to take him home either. Patient requested [facility], and the referral sent to [facility]. The patient was accepted . [facility] will call back with room # and ambulance forklift picker ETA.
[2023-01-01] MEDS: cefTRIAXone 1 GM IVPB PREMIX 50 ML IV SCH (12:05)
--- NOTE | 2023-01-01 13:24 | NUR ---
[facility]
[2023-01-01 14:04] VITALS: BP_SYST 125; PULSE 85; RESP 18; TEMP 97.3; O2SAT 95
--- NOTE | 2023-01-01 14:57 | NUR ---
CHF PROTOCOL PATIENT IS GOING TO SNF, WILL BE SEEN BY MD IN SNF./
--- NOTE | 2023-01-01 15:10 | NUR ---
D/C Patient to [facility], gave report to Pilarnurse Patient given medication reconciliation form and D/C instructions. product picker arrived. Patient verbalized understanding. Patient in stable condition, ID band removed. IV catheter removed, intact and dressing applied, no active bleeding. Patient educated on pain management. All belongings sent with patient.
--- NOTE | 2023-01-01 15:38 | NUR ---
PATIENT WITH HIS HOME MEDS IN PHARMACY SPOKE TO OF PATIENT AND MADE AWARE THAT HOME MEDS IS STILL HERE. PATIENT WENT TO SNF.
== END 2023-01-01 15:10 | DRG 193 ==
LOC: SED 06:04 → STU 08:57 → SMU 12-31 21:02
PROVIDERS: ADMIT Preventive Medicine Preventive Medicine/Occupational Environmental Medicine; ATTEND Preventive Medicine Preventive Medicine/Occupational Environmental Medicine
PROC: 5A1D70Z Performance of Urinary Filtration, Intermittent, Less than 6 Hours Per Day (ICD-10-PCS; principal; 2022-12-29)
PROC: 5A1D70Z Performance of Urinary Filtration, Intermittent, Less than 6 Hours Per Day (ICD-10-PCS; 2022-12-31)
DX: J18.9 Pneumonia, unspecified organism (principal); I50.21 Acute systolic (congestive) heart failure; J96.01 Acute respiratory failure with hypoxia; N18.6 End stage renal disease; I13.2 Hypertensive heart and chronic kidney disease with heart failure and with stage 5 chronic kidney disease, or end stage renal disease; E11.51 Type 2 diabetes mellitus with diabetic peripheral angiopathy without gangrene; E11.621 Type 2 diabetes mellitus with foot ulcer; E87.5 Hyperkalemia; G47.00 Insomnia, unspecified; G89.29 Other chronic pain; E78.5 Hyperlipidemia, unspecified; F41.9 Anxiety disorder, unspecified; E11.40 Type 2 diabetes mellitus with diabetic neuropathy, unspecified; K21.9 Gastro-esophageal reflux disease without esophagitis; M79.606 Pain in leg, unspecified; D63.1 Anemia in chronic kidney disease; E83.51 Hypocalcemia; E88.09 Other disorders of plasma-protein metabolism, not elsewhere classified; E11.22 Type 2 diabetes mellitus with diabetic chronic kidney disease; Z99.2 Dependence on renal dialysis; Z79.899 Other long term (current) drug therapy; Z89.431 Acquired absence of right foot; Z79.1 Long term (current) use of non-steroidal anti-inflammatories (NSAID)
CPT/HCPCS: 36415; 71045; 80053; 80202; 83735; 83880; 84100; 84484; 85025; 85610-TC; 85651-TC; 85730-TC; 86140; 87040; 87081; 90935; 90937; 93005; 93306; 96365; 96375; 99285; G0378; J0696; J0885; J1644; J2270; J3370; J7050